=== PATIENT | female | born 1995 | race Two or more races ===

== ENCOUNTER 2016-10-08 18:50 | Outpatient (CLI) | payer MEDICAID ==
[2016-10-08 19:29] LABS: APPEARANCE,URINE SLIGHTLY-CLOUDY; BILIRUBIN,URINE NEGATIVE (NEGATIVE); GLUCOSE, URINE NEGATIVE (NEGATIVE); KETONES,URINE NEGATIVE (NEGATIVE); LEUKOCYTE ESTERASE,URINE LARGE (NEGATIVE); NITRITE,URINE NEGATIVE (NEGATIVE); PROTEIN,URINE 30 mg/dL (NEGATIVE); URINE SPECIFIC GRAVITY 1.028
[2016-10-08 19:32] LABS: AMNISURE (ROM) NEGATIVE (NEGATIVE)
[2016-10-08 19:50] LABS: URINE BARBITURATES SCREEN NEGATIVE; URINE METHADONE SCREEN NEGATIVE; URINE OPIATES LOW NEGATIVE; URINE PHENCYCLIDINE SCREEN NEGATIVE
--- NOTE | 2016-10-08 20:00 | L&D Flow Sheet ---
LD Flowsheet Datetime Report Generated by CPN: 10/08/2016 20:00 Datetime: 10/08/2016 19:37 NBP Sys/Tia/Mean (mmHg): 132 (QS system process) : 63 (QS system process) : 90 (QS system process) Pulse: 83 (QS system process) Respirations: 15 (Adelaida Vitrano, RN) Communication LaborFlag: Labor (QS system process) Datetime: 10/08/2016 19:36 Monitor Interventions for FHR: Ultrasound Adjusted (Adelaida Vitrano, RN) Patient Care Comments: Reviewed negative Amnisure; pt returned to bed for monitoring (Adelaida Vitrano, RN) Datetime: 10/08/2016 19:30 Uterine Activity Monitor Mode: External; Palpation (Adelaida Vitrano, RN) Frequency (min): Occasional (Adelaida Vitrano, RN) Quality: Mild (Adelaida Vitrano, RN) Duration (sec): 50-90 (Adelaida Vitrano, RN) Resting Tone (Palpate): Relaxed (Adelaida Vitrano, RN) Assessment A Monitor Mode: External US (Adelaida Vitrano, RN) FHR Baseline Rate : 150 (Adelaida Vitrano, RN) Variability: Moderate 6-25 bpm (Adelaida Vitrano, RN) Accelerations: 15X15 (Adelaida Vitrano, RN) Decelerations: None (Adelaida Vitrano, RN) Datetime: 10/08/2016 19:29 Monitor Interventions for FHR: Ultrasound Adjusted (Adelaida Vitrano, RN) Comments: Tracing maternal HR d/t pt position and movement; RN at bedside (Adelaida Vitrano, RN) Datetime: 10/08/2016 19:25 Monitor Interventions for FHR: Ultrasound Adjusted (Adelaida Vitrano, RN) Datetime: 10/08/2016 19:24 Patient Care Comments: Pt up to birthing ball (Adelaida Vitrano, RN) Datetime: 10/08/2016 19:09 Vaginal Exam Dilatation (cm): 2.5 (Adelaida Vitrano, RN) Effacement (%): 50 (Adelaida Vitrano, RN) Station: -2 (Adelaida Vitrano, RN) Exam by: Sharda Nelson RN (Adelaida Vitrano, RN) Vaginal Bleeding: None (Adelaida Vitrano, RN) Cervix, Consistency: Moderate (Adelaida Vitrano, RN) Cervix, Position: Posterior (Adelaida Vitrano, RN) Datetime: 10/08/2016 19:06 NBP Sys/Tia/Mean (mmHg): 142 (QS system process) : 85 (QS system process) : 106 (QS system process) Pulse: 83 (QS system process) Respirations: 15 (Adelaida Vitrano, RN) Communication LaborFlag: Labor (QS system process) Datetime: 10/08/2016 19:04 Patient Care Patient Position/Activity: Right Tilt; Semi-Fowlers (Adelaidajairon Nelson RN) I/O Interventions: Clear Liquids Given (Adelaida Vitrano, RN) Teaching Instructional Method: Verbal; Patient Instructed; Family/Support Person Instructed; Verbalized Understanding (Adelaida Nelson RN) Plan of Care: Plan of Care Discussed (Adelaida Nelson RN) Unit Routine: [place] to Room; Call Gallegos; Bed; Unit Personnel; Monitoring; Safety/Fall Risk Prevention; Bathroom Privileges (Adelaida EVETTE Nelson) Datetime: 10/08/2016 19:00 Vital Signs Stage of : Labor (Adelaida Vitrano, RN) Frequency (min): Unsure (Adelaida Vitrano, RN) Pain Pain Scale: 2 (Adelaida Leslie, RN) Pain Presence: Intermittent (Adelaida Lydiaano, RN) Pain Type: Cramping (Adelaida Vitrano, RN) Pain Location: Abdomen; Back (Adelaida Lydiaano, RN) Pain Relief Measures: Comfort Measures (Adelaida Vitrano, RN) Pain Coping: Talking Through Contractions (Adelaida Lydiaano, RN) Vaginal Bleeding: None (Adelaida Lydiaano, RN) Maternal Assessment Level of Consciousness: Fully Conscious (Adelaida Vitrano, RN) DTR's/Clonus: DTRs 2+; No Clonus (Adelaida Vitrano, RN) Headache: Denies (Adelaida Vitrano, RN) Breath Sounds, Left: Clear and Equal (Adelaida Vitrano, RN) Breath Sounds, Right: Clear and Equal (Adelaida Vitrano, RN) Nausea/Vomiting: Hx of Nausea/Vomiting (Annotations: Increase in nausea today) (Adelaida Vitrano, RN) RUQ Epigastric Pain: Denies (Adelaida Vitrano, RN) Communication LaborFlag: Labor (QS system process)
--- NOTE | 2016-10-08 20:06 | Non Stress Test Report ---
Non Stress Test Datetime Report Generated by CPN: 10/08/2016 20:05 DEMOGRAPHIC Test Number: 1 EGA NST: 37.6 INDICATION Indication for Study: Ordered by Provider MONITORING Monitor Explained: Monitor Explained; Test Explained; Patient Verbalized Understanding Time on Monitor: 10/08/2016 19:31 Time off Monitor: 10/08/2016 19:52 NST Duration: 21 NST INTERVENTIONS NST Interventions: Reposition Patient Physician Notified NST: Dr. Spann BABY A: [id number] BABY A Movement : Present Contraction Frequency : Occasional FHR Baseline : 155 Accelerations : 15X15 Decelerations : None Variability : Moderate 6-25bpm NST Review: Meets Criteria for Reactive NST NST Review and Verified By : Marcia Awad, RN NST Results: Reactive NST REPORT Report Trigger: Send Report
== END 2016-10-08 19:58 | disposition home or self-care (01) ==
LOC: LC 18:50
PROVIDERS: ATTEND Obstetrics & Gynecology
PROC: 4A1HXCZ Monitoring of Products of Conception, Cardiac Rate, External Approach (ICD-10-PCS; principal; 2016-10-08)
DX: O47.1 False labor at or after 37 completed weeks of gestation (principal); Z3A.37 37 weeks gestation of pregnancy
CPT/HCPCS: 59025; 80307; 81005; 84112

== ENCOUNTER 2016-10-09 19:38 | Inpatient (IN) | payer MEDICAID ==
[2016-10-09] MEDS ORDERED: PENICILLIN G POTASSIUM 5,000,000 UNIT in DEXTROSE 5%-WATER 100 ML IV ONE (20:27)
[2016-10-09] MEDS ORDERED: RINGERS SOLUTION,LACTATED 1,000 ML IV PRN (20:27)
[2016-10-09] MEDS ORDERED: ONDANSETRON 4 MG TAB.RAPDIS PO ONE (20:28)
[2016-10-09 20:30] LABS: ABSOLUTE EOSINOPHILS # (AUTO) 0.1 10^3/uL (0.0-0.6); ABSOLUTE LYMPHOCYTES (AUTO) 2.4 10^3/uL (0.5-4.7); ABSOLUTE MONOCYTES (AUTO) 1.3 10^3/uL (0.1-1.4); BASOPHILS % (AUTO) 0.1 % (0-2); EOSINOPHILS % (AUTO) 0.4 % (0-6); HEMATOCRIT 34.2 % (36.0-47.0); HEMOGLOBIN 11.2 g/dL (12.0-15.5); HGB HCT DIFFERENCE -0.6; LYMPHOCYTES % (AUTO) 20.4 % (13-45); MEAN CORPUSCULAR HEMOGLOBIN 25.9 pg (27.0-33.4); MEAN CORPUSCULAR HGB CONC 32.6 g/dL (32.0-36.0); MEAN CORPUSCULAR VOLUME 80 fl (80-97); MONOCYTES % (AUTO) 10.9 % (3-13); RED CELL DISTRIBUTION WIDTH 13.9 % (11.5-14.0); SEGMENTED NEUTROPHILS % (AUTO) 68.2 % (42-78); WHITE BLOOD COUNT 11.8 10^3/uL (4.0-10.5)
[2016-10-09] MEDS ORDERED: ONDANSETRON 4 MG TAB.RAPDIS ONE (20:30)
[2016-10-09] MEDS ORDERED: PENICILLIN G-K 5 MILLION UNIT VIAL ONE (20:31)
[2016-10-09 20:58] LABS: APPEARANCE,URINE CLEAR; BILIRUBIN,URINE NEGATIVE (NEGATIVE); GLUCOSE, URINE NEGATIVE (NEGATIVE); KETONES,URINE NEGATIVE (NEGATIVE); LEUKOCYTE ESTERASE,URINE TRACE (NEGATIVE); NITRITE,URINE NEGATIVE (NEGATIVE); PROTEIN,URINE NEGATIVE (NEGATIVE); URINE SPECIFIC GRAVITY 1.011; UROBILINOGEN,URINE NEGATIVE mg/dL (<2.0)
[2016-10-09 21:13] LABS: URINE BARBITURATES SCREEN NEGATIVE; URINE METHADONE SCREEN NEGATIVE; URINE OPIATES LOW NEGATIVE; URINE PHENCYCLIDINE SCREEN NEGATIVE
[2016-10-09] MEDS ORDERED: ONDANSETRON HCL INJ/PF 4 MG/2 ML SDV IV ONE (21:27)
[2016-10-09] MEDS ORDERED: ONDANSETRON HCL INJ/PF 4 MG/2 ML SDV ONE (21:29)
--- NOTE | 2016-10-09 22:00 | L&D Flow Sheet ---
LD Flowsheet Datetime Report Generated by CPN: 10/09/2016 22:00 Datetime: 10/09/2016 21:50 Dilatation (cm): 5.0 (Antoinette Miri, RN) Effacement (%): 100 (Antoinette Miri, RN) Station: 0 (Antoinette Miri, RN) Exam by: R Miri, RNC (Antoinette Miri, RN) Datetime: 10/09/2016 21:31 Antiemetics/Antacids: Zofran IV (mg) @ (Annotations: 4 mg) (Antoinette Miri, RN) Datetime: 10/09/2016 21:30 Patient Care Comments: Pt vomiting in BR. States has the shakes. (Antoinette Miri, RN) Datetime: 10/09/2016 21:23 Communication Comments: Pt continues to feel nauseated. Dr. Bahena notified. Order for 4mg Zofran IV. (Antoinette Miri, RN) Datetime: 10/09/2016 21:20 I/O Interventions: Up to BR (Antoinette Miri, RN) Datetime: 10/09/2016 21:01 NBP Sys/Tia/Mean (mmHg): 143 (QS system process) : 82 (QS system process) : 107 (QS system process) Pulse: 78 (QS system process) LaborFlag: Antepartum (QS system process) Datetime: 10/09/2016 21:00 Monitor Mode: External (Antoinette hCery, RN) Frequency (min): 5-6 (Antoinette Chery, RN) Quality: Moderate (Antoinette Miri, RN) Duration (sec): 50-60 (Antoinette Miri, RN) Pattern: Normal: <= 5 Contractions in 10 Minutes (Antoinette Chery, RN) Resting Tone (Palpate): Relaxed (Antoinette Chery, RN) Monitor Mode: External US (Antoinette Chery, RN) FHR Baseline Rate : 145 (Antoinette Miri, RN) FHR Baseline Changes: No Baseline Change (Antoinette Chery, RN) Variability: Moderate 6-25 bpm (Antoinette Miri, RN) Accelerations: 15X15 (Antoinette Miri, RN) Decelerations: None (Antoinette Miri, RN) Datetime: 10/09/2016 20:51 Antibiotics: Penicillin IV (Units) @ (Annotations: 5,000,000 units) (Antoinette Miri, RN) Datetime: 10/09/2016 20:48 Antiemetics/Antacids: Zofran PO (mg) @ (Annotations: 4 mg ODT) (Antoinette Miri, RN) Datetime: 10/09/2016 20:38 I/O Interventions: Up to BR (Antoinette Chery, RN) Datetime: 10/09/2016 20:36 NBP Sys/Tia/Mean (mmHg): 130 (QS system process) : 81 (QS system process) : 100 (QS system process) Pulse: 71 (QS system process) LaborFlag: Antepartum (QS system process) Datetime: 10/09/2016 20:30 Monitor Mode: External (Antoinette Chery, RN) Frequency (min): 5 (Antoinette Chery, RN) Quality: Moderate (Antoinette Chery, RN) Duration (sec): 50-70 (Antoinette Miri, RN) Pattern: Normal: <= 5 Contractions in 10 Minutes (Antoinette Chery, RN) Resting Tone (Palpate): Relaxed (Antoinette Chery, RN) Monitor Mode: External US (Antoinette Chery, RN) FHR Baseline Rate : 145 (Antoinette Miri, RN) FHR Baseline Changes: No Baseline Change (Antoinette Chery, RN) Variability: Moderate 6-25 bpm (Antoinette Chery, RN) Accelerations: 15X15 (Antoinette Miri, RN) Decelerations: None (Antoinette Miri, RN) Datetime: 10/09/2016 20:24 IV/Blood Work: IV Infusing per Order; New IV Bag Hung (Ney Head, RN) Patient Care Comments: 18G IV started in LFA x1 attempt. Pt tolerated well. (Gail Sonido, RN) Datetime: 10/09/2016 20:21 Communication Comments: Dr. Bahena notified of pt's presence and c/o ROM ,u/c pattern and cervical exam. Orders received. (Antoinette Miri, RN) Datetime: 10/09/2016 20:13 Patient Care Comments: Pt sitting up due to feeling very nauseous. (Antoinette Chery RN) Instructional Method: Verbal (Antoinette Chery RN) Plan of Care: Plan of Care Discussed (Antoinette Chery RN) Unit Routine: [place] to Room; Call Gallegos; Bed (Antoinette Chery RN) Medications: Antibiotics (Antoinette Chery RN) Datetime: 10/09/2016 20:11 Pain Scale: 3 (Antoinette Chery RN) Pain Presence: Intermittent (Antoinette Chery RN) Pain Type: Cramping (Antoinette Chery RN) Pain Location: Abdomen (Antoinette Chery RN) Pain Goal: 1 (Antoinetet Chery RN) Pain Coping: Breathing Through Contractions (Antoinette Chery RN) Membrane Status: Ruptured (Antoinette Chery RN) Membranes Ruptured Date/Time: 10/09/2016 19:00 (Antoinette Chery RN) Membranes Rupture Method: Spontaneous (Antoinette Chery RN) Amniotic Fluid Color: Clear (Antoinette Chery RN) Amniotic Fluid Amount: None (Antoinette Chery RN) Amniotic Fluid Odor: Normal (Antoinette Chery RN) Vaginal Bleeding: None (Antoinette Chery RN) Pool: moderate amount of fluid seen leaking from vagina with valsalva (Antoinette Chery RN) Dilatation (cm): 3-4 cms (Antoinette Chery RN) Effacement: >80_ effaced (Antoinette Chery RN) Station: minus 1 to 0 (Antoinette Miri, RN) Consistency: Soft (Antoinette Miri, RN) Position: Midposition (Antoinette Miri, RN) Total Oquendo's Score: 10 (QS system process) : 9-14 = Usually no failure for induction (QS system process) Level of Consciousness: Fully Conscious (Antoinette Miri, RN) DTR's/Clonus: DTRs 1+ (Antoinette Miri, RN) Headache: Denies (Antoinette Miri, RN) Breath Sounds, Left: Clear and Equal (Antoinette Miri, RN) Breath Sounds, Right: Clear and Equal (Antoinette Miri, RN) Nausea/Vomiting: Present (Annotations: just nausea) (Antoinette Miri, RN) RUQ Epigastric Pain: Denies (Antoinette Miri, RN) LaborFlag: Antepartum (QS system process) Datetime: 10/09/2016 20:06 NBP Sys/Tia/Mean (mmHg): 139 (QS system process) : 66 (QS system process) : 95 (QS system process) Pulse: 69 (QS system process) LaborFlag: Antepartum (QS system process) Datetime: 10/09/2016 20:04 Stage of : Antepartum (Antoinette Chery RN) Dilatation (cm): 4.0 (Antoinette Chery RN) Effacement (%): 80 (Antoinette Chery RN) Station: -1 (Antoinette Chery RN) Exam by: RAHEEM Saenz (Antoinette Chery RN) Vaginal Bleeding: None (Antoinette Chery RN) Cervix, Consistency: Soft (Antoinette Chery RN) Cervix, Position: Midposition (Antoinette Chery RN)
[2016-10-09] MEDS ORDERED: PROMETHAZINE HCL INJ 25 MG/1 ML VIAL IV ONE (22:15)
[2016-10-09] MEDS ORDERED: NALBUPHINE HCL INJ 10 MG/1 ML AMPULE INJ ONE (22:15)
[2016-10-09] MEDS ORDERED: NALBUPHINE HCL INJ 10 MG/1 ML AMPULE ONE (22:18)
[2016-10-09] MEDS ORDERED: PROMETHAZINE HCL INJ 25 MG/1 ML VIAL ONE (22:18)
[2016-10-10] MEDS ORDERED: LIDOCAINE 1% INJ-PF (10 MG/ML) 30 ML SDV ONE (00:20)
[2016-10-10] MEDS ORDERED: OXYTOCIN/NORMAL SALINE 20 UNIT/1,000 ML RTUINJ ONE (00:20)
[2016-10-10] MEDS ORDERED: MISOPROSTOL 0.2 MG TABLET ONE (00:20)
[2016-10-10] MEDS ORDERED: PENICILLIN G-K 5 MILLION UNIT VIAL ONE (00:21)
[2016-10-10] MEDS ORDERED: PENICILLIN G POTASSIUM 2,500,000 UNIT in DEXTROSE 5%-WATER 50 ML IV SCH (00:28)
[2016-10-10] MEDS ORDERED: IBUPROFEN 800 MG TABLET ONE (03:19)
--- NOTE | 2016-10-10 03:55 | Delivery Summary ---
Del Sum A-C Datetime Report Generated by CPN: 10/10/2016 03:55 ADMISSION DATA Chief Complaint: Uterine Contractions; Suspected Ruptured Membranes Indication for Induction: Not Applicable Admission Impression: Term, Intrauterine ; Active Labor; Ruptured Membranes Admit Provider Comments: Term SROM/ labor. gbs + for pcn. anticipate DELIVERY PERSONNEL Delivery Doctor:: Bhavna Bahena MD Labor and Delivery Nurse:: Antoinette Chery RNsenior media planner Nurse:: Ney Head RN Nursery Nurse:: Michela Nunez RN Hand Ii Thermal Cutter/PELT DROPPER: Camryn Kumar, ST MATERNAL INFORMATION Delivery Anesthesia: Local Medications After Delivery: Pitocin Bolus-Please Comment; Pitocin Drip 20 Units/1000ml NSS Meds After Delivery Comment: 20 units pitocin bolus after placenta delivery Estimated Blood Loss (ml): 350 Maternal Complications: None Provider Comments: over intact perineum w repair of lac as above. compound hand noted. no shoulder difficulty. live male infant ap 05/09. spontaneous intact placenta 3vc. no complications LABOR SUMMARY EDC: 10/23/2016 00:00 No. Babies in Womb: 1 Attempted: No Labor Anesthesia: None LABOR INFORMATION Reason for Induction: Not Applicable Onset of Labor: 10/09/2016 19:00 Complete Dilatation: 10/10/2016 01:31 Oxytocin: N/A Group B Beta Strep: Positive Antibiotics # of Doses: 2 Antibiotics Time of Last Dose: 0030 Name of Antibiotic Given: Penicillin Steroids Given: None Reason Steroids Not Administered: Not Applicable MEMBRANES Membranes Rupture Method: Spontaneous Rupture of Membranes: 10/09/2016 19:00 Length of Rupture (hr): 6.73 Amniotic Fluid Color: Clear Amniotic Fluid Amount: None Amniotic Fluid Odor: Normal STAGES OF LABOR Stage 1 hr: 6 Stage 1 min: 31 Stage 2 hr: 0 Stage 2 min: 13 Stage 3 hr: 0 Stage 3 min: 3 Total Time in Labor hr: 6 Total Time in Labor min: 47 VAGINAL DELIVERY Episiotomy: None Laceration Extension: First Degree Laceration Type: Vaginal Laceration Repair: Yes Laceration Repair Note: 1% lidocaine local used. 1st deg lac left vagina repaired in running fashion with 3-0 vicryl Sponge Count Correct: Yes Sharps Count Correct: Yes CSECTION DELIVERY Primary Indication: N/A Secondary Indication: N/A CSection Urgency: N/A CSection Incidence: N/A Labor: N/A Elective: N/A CSection Incision: N/A BABY A INFORMATION Delivery Date/Time: 10/10/2016 01:44 Method of Delivery: Vaginal Born in Route : No : N/A Forceps: N/A Vacuum Extraction: N/A Shoulder Dystocia : No PRESENTATION/POSITION BABY A Presentation: Cephalic Cephalic Presentation: Vertex Vertex Position: Right Occipital Anterior Breech Presentation: N/A PLACENTA INFORMATION BABY A Placenta Delivery Time : 10/10/2016 01:47 Placenta Method of Delivery: Spontaneous Placenta Status: Delivered SCORES BABY A Heart Rate 1 min: >100 bpm Resp Effort 1 min: Good Cry Reflex Irritability 1 min: Cough or Sneeze or Pulls Away Muscle Tone 1 min: Active Motion Color 1 min: Body [place], Extremities Blue Resuscitation Effort 1 min: Tactile Stimulation SCORE 1 MIN: 9 Heart Rate 5 min: >100 bpm Resp Effort 5 min: Good Cry Reflex Irritability 5 min: Cough or Sneeze or Pulls Away Muscle Tone 5 min: Active Motion Color 5 min: Body [place], Extremities Blue Resuscitation Effort 5 min: N/A SCORE 5 MIN: 9 INFANT INFORMATION BABY A Gestational Age at Delivery: 38.1 Gestational Status: Early Term- 37- 38.6 Weeks Outcome : Liveborn Infant Condition : Stable Sex: Female IDENTIFICATION BABY A Verification Date/Time: 10/10/2016 01:52 ID Band Number: [id number] Mother's Name Verified: Yes RN Verifying Infant: Marcia Awad RN Additional Verifying Personnel: Sharda Head RN WEIGHT/LENGTH BABY A Infant Birthweight (gm): 2900 Weight (lb): 6 Weight (oz): 6 Infant Length (in): 19.25 Length (cm): 48.90 CORD INFORMATION BABY A No. Cord Vessels: 3 Nuchal Cord : N/A Cord Blood Taken: Yes-For Storage (Mom's Blood type +) Suction: Mouth ASSESSMENT BABY A Infant Complications: None Physical Findings at Delivery: Other Physical Findings- Other: see nursery notes Infant Respirations: Appears Normal Skin to Skin: Yes Skin to Skin Time (min): 90 Green Belt/ALS Called : No Infant Care By: Carlos Nunez RN Transferred To: Remains with Mother BABY B INFORMATION : N/A SIGNATURES Signature: with User ID: [email or web address]
[2016-10-10] MEDS ORDERED: ACETAMINOPHEN WITH CODEINE #3 TABLET PO PRN ×2 (04:02)
[2016-10-10] MEDS ORDERED: DIPH/PERTUSS(ACELL)/TETANUS VAC/PF 0.5 ML SYR (>=10YO) IM PRN (04:02)
[2016-10-10] MEDS ORDERED: BENZOCAINE/MENTHOL AEROSOL SPRAY 56 ML TOP PRN (04:02)
[2016-10-10] MEDS ORDERED: ZOLPIDEM TARTRATE 5 MG TABLET PO PRN (04:02)
[2016-10-10] MEDS ORDERED: DIBUCAINE 1% OINTMENT 28 GM TP PRN (04:02)
[2016-10-10] MEDS ORDERED: OXYTOCIN/NORMAL SALINE 1,000 ML IV PRN (04:02)
[2016-10-10] MEDS ORDERED: MEASLES,MUMPS&RUBELLA VACC/PF 0.5 ML VIAL SUBCUT PRN (04:02)
--- NOTE | 2016-10-10 04:13 | Admission Physical ---
Datetime Report Generated by CPN: 10/10/2016 04:12 CURRENT ADMISSION Hx Assessment: The History has been Reviewed and is Current Chief Complaint: Uterine Contractions; Suspected Ruptured Membranes Indication for Induction: Not Applicable Admit Plan: Admit to Unit; Initiate Labor Protocol ALLERGIES Medication Allergies: No Medication Allergies: No Known Allergies (10/09/2016) Latex: No Latex Allergies Food Allergies: N/A Environmental Allergies: N/A OBSTETRICAL HISTORY EDC: 10/23/2016 00:00 : 1 Para: 0 Term: 0 : 0 SAB: 0 IAB: 0 Ectopic: 0 Livin Cesareans: 0 VBACs: 0 Multiple Births: 0 Gestational Diabetes: No Rh Sensitization: No Incompetent Cervix: No ELIZA: No Infertility: No ART Treatment: No Uterine Anomaly: No IUGR: No Hx Previous C/S: No Macrosomia: No Hx Loss/Stillborn: No PIH: No Hx : No Placenta Previa/Abruption: No Depression/PP Depression: No PTL/PROM: No Post Hemorrhage: No SEE RECORDS Alcohol: No Marijuana : No Cocaine: No Other Illicit Drugs: No Cigarettes: Never Smoker. [id number] MEDICAL HISTORY Diabetes: No Blood Transfusion: No Pulmonary Disease (Asthma, TB): No Breast Disease: No Hypertension: No Assistive Technology Specialist Surgery: No Heart Disease: No Hosp/Surgery: No Autoimmune Disorder: No Anesthetic Complications: No Kidney Disease: No Abnormal Pap Smear: No Neuro/Epilepsy: No Psychiatric Disorders: No Other Medical Diseases: No Hepatitis/Liver Disease: No Significant Family History: No Varicosities/Phlebitis: No Trauma/Violence : No Thyroid Dysfunction: No INFECTIOUS HISTORY Gonorrhea: No Genital Herpes: No Chlamydia: No Tuberculosis: No Syphilis: No Hepatitis: No HIV/AIDS Exposure: No Rash or Viral Illness: No HPV: No PHYSICAL EXAM General: Normal HEENT: Deferred Neurologic: Deferred Thyroid: Deferred Heart: Normal Lungs: Normal Breast: Deferred Back: Deferred Abdomen: Normal Genitourinary Exam: Normal Extremities: Normal DTRs: Normal Pelvic Type: Adequate Vital Signs: Reviewed; Within Normal Limits MEMBRANES Membranes: Ruptured FETUS A EGA: 38.1 FHR- Baseline: 130 Variability: Moderate 6-25bpm Accelerations: 15X15 Decelerations: Variable FHR Category: Category II Admit Comment: Term SROM/ labor. gbs + for pcn. anticipate PLANS FOR LABOR AND DELIVERY Labor and Delivery: None Pain Management: Natural Feeding Preference: Breast Benefit of Breast Feed Discussed: Yes Circumcision: N/A INFORMED CONSENT Signature: with User ID: [email or web address]
[2016-10-10] MEDS: IBUPROFEN 800 MG TABLET PO SCH ×3 (05:09→21:14)
--- NOTE | 2016-10-10 07:00 | L&D Flow Sheet ---
LD Flowsheet Datetime Report Generated by CPN: 10/10/2016 07:00 Datetime: 10/10/2016 03:24 Pain Scale: 3 (Antoinette Miri, RN) Pain Presence: Intermittent (Antoinette Miri, RN) Pain Type: Cramping (Antoinette Miri, RN) Pain Location: Abdomen (Antoinette Miri, RN) Datetime: 10/10/2016 02:48 NBP Sys/Tia/Mean (mmHg): 119 (QS system process) : 58 (QS system process) : 83 (QS system process) Pulse: 80 (QS system process) Respirations: 18 (Antointete Miri, RN) Datetime: 10/10/2016 02:37 Stage of : Recovery (Gail EVETTE Head) NBP Sys/Tia/Mean (mmHg): 120 (QS system process) : 62 (QS system process) : 85 (QS system process) Pulse: 82 (QS system process) Datetime: 10/10/2016 02:17 Stage of : Recovery (Ritabridger EVETTE Head) NBP Sys/Tia/Mean (mmHg): 132 (QS system process) : 68 (QS system process) : 94 (QS system process) Pulse: 81 (QS system process) Datetime: 10/10/2016 02:02 Stage of : Recovery (Antoinette Chery RN) NBP Sys/Tia/Mean (mmHg): 137 (QS system process) : 82 (QS system process) : 103 (QS system process) Pulse: 88 (QS system process) Respirations: 18 (Antoinette Chery RN) Temperature (F): 98.8 (Antoinette Chery RN) Temperature (C): 37.1 (QS system process) Temperature Route: Oral (Antoinette Chery RN) Pain Scale: 2 (Antoinette Chery RN) Pain Presence: Constant (Antoinette Chery RN) Pain Type: Dull (Antoinette Chery RN) Pain Location: Perineum (Antoinette Chery RN) Datetime: 10/10/2016 01:44 Stage 2 Comments: of viable baby girl, see delivery summary (Agbridger Sonido ) Datetime: 10/10/2016 01:43 Communication: Provider at Bedside (Ximena Awad, RN) Communication Comments: Dr Bahena at bedside for delivery (Ximena Awad, RN) Datetime: 10/10/2016 01:40 Monitor Mode: External (Antoinette Chery, RN) Frequency (min): 2 (Antoinette Chery, RN) Quality: Moderate to Strong (Antoinette Chery, RN) Duration (sec): 50-70 (Antoinette Chery, RN) Resting Tone (Palpate): Relaxed (Antoinette Chery, RN) Contraction Comments: Pushing (Antoinette Chery, RN) Datetime: 10/10/2016 01:31 Dilatation (cm): 10.0 (Antoinette Chery, RN) Exam by: Dr. Bahena (Antoinette Chery, RN) Vaginal Exam Comments: lip reduced per Dr. Bahena (Antoinette Chery, RN) Datetime: 10/10/2016 01:30 Monitor Mode: External (Antoinette Miri, RN) Frequency (min): 2 (Antoinette Miri, RN) Quality: Moderate to Strong (Antoinette Miri, RN) Duration (sec): 50-70 (Antoinette Miri, RN) Resting Tone (Palpate): Relaxed (Antoinette Miri, RN) Monitor Mode: External US (Antoinette Miri, RN) FHR Baseline Rate : 135 (Antoinette Miir, RN) FHR Baseline Changes: No Baseline Change (Antoinette Miri, RN) Variability: Moderate 6-25 bpm (Antoinette Miri, RN) Accelerations: None (Antoinette Miri, RN) Decelerations: Early (Antoinette Miri, RN) Datetime: 10/10/2016 01:28 Communication: Provider at Bedside (Antoinette Miri, RN) Communication Comments: Dr. Bahena (Antoinette Miri, RN) Datetime: 10/10/2016 01:25 Patient Care Comments: Pt to right side. (Antoinette Chery, RN) Datetime: 10/10/2016 01:22 Patient Care Comments: Back to back. Trying to reduce right anterior lip. (Antoinette Chery, EVETTE) Datetime: 10/10/2016 01:07 Accelerations: None (Antoinette Chery RN) Pain Assessment Comments: pt c/o back pain. (Antoinette Chery RN) Patient Care Comments: to hands and knees (Antoinette Chery RN) LaborFlag: Antepartum (QS system process) Datetime: 10/10/2016 01:00 Monitor Mode: External (Antoinette Miri, RN) Frequency (min): 1-4 (Antoinette Miri, RN) Quality: Moderate to Strong (Antoinette Miri, RN) Duration (sec): 70-100 (Antoinette Miri, RN) Resting Tone (Palpate): Relaxed (Antoinette Miri, RN) Monitor Mode: External US (Antoinette Miri, RN) FHR Baseline Rate : 140 (Antoinette Miri, RN) FHR Baseline Changes: No Baseline Change (Antoinette Miri, RN) Variability: Moderate 6-25 bpm (Antoinette Miri, RN) Accelerations: None (Antoinette Miri, RN) Decelerations: Early (Antoinette Miri, RN) Datetime: 10/10/2016 00:59 Dilatation (cm): 9.5 (Antoinette Miri, RN) Exam by: R Miri RNC (Antoinette Miri, RN) Datetime: 10/10/2016 00:54 Patient Care Comments: Pt on knees in pain. States the pressure is worse. (Antoinette Miri, RN) Communication: RN at Bedside (Antoinette Miri, RN) Datetime: 10/10/2016 00:33 Communication Comments: Dr. Bahena notified of pt's progress. States to check pt in an hour and call her back. (Antoinette Miri, RN) Datetime: 10/10/2016 00:32 Communication: RN at Bedside (Antoinette Miri, RN) Datetime: 10/10/2016 00:30 Monitor Mode: External (Antoinette Miri, RN) Frequency (min): 1-4 (Antoinette Miri, RN) Frequency (min): 2-4 (Antoinette Miri, RN) Quality: Moderate to Strong (Antoinette Miri, RN) Duration (sec): 40-70 (Antoinette Miri, RN) Resting Tone (Palpate): Relaxed (Antoinette Miri, RN) Monitor Mode: External US (Antoinette Miri, RN) FHR Baseline Rate : 140 (Antoinette Miri, RN) FHR Baseline Changes: No Baseline Change (Antoinette Miri, RN) Variability: Moderate 6-25 bpm (Antoinette Miri, RN) Accelerations: None (Antoinette Miri, RN) Decelerations: Early (Antoinette Miri, RN) Antibiotics: Penicillin IV (Units) @ 2,500,000 (Antoinette Chery, RN) Communication: RN at Bedside (Antoinette Chery, RN) Datetime: 10/10/2016 00:15 Monitor Mode: External (Antoinette Miri, RN) Frequency (min): 2-3 (Antoinette Miri, RN) Quality: Moderate to Strong (Antoinette Miri, RN) Duration (sec): 50-80 (Antoinette Miri, RN) Pattern: Normal: <= 5 Contractions in 10 Minutes (Antoinette Miri, RN) Monitor Mode: External US (Antoinette Miri, RN) FHR Baseline Rate : 135 (Antoinette Chery, RN) FHR Baseline Changes: No Baseline Change (Antoinette Chery, RN) Variability: Moderate 6-25 bpm (Antoinette Chery, RN) Accelerations: 15X15 (Antoinette Miri, RN) Decelerations: Early (Antoinette Miri, RN) Datetime: 10/10/2016 00:11 Dilatation (cm): 7.5 (Antoinette Chery RN) Station: 1 (Antoinette Chery RN) Exam by: RAHEEM Saenz (Antoinette Chery RN) Vaginal Bleeding: None (Antoinette Chery RN) Cervix, Consistency: Soft (Antoinette Chery RN) Cervix, Position: Anterior (Antoinette Chery RN) Patient Care Comments: Pt noted to be standing on side of the bed swaying. Family members present with her. C/O feeling pressure. (Antoinette Chery RN) Datetime: 10/10/2016 00:00 Monitor Mode: External (Antoinette Chery, RN) Frequency (min): 2-4 (Antoinette Chery RN) Quality: Moderate to Strong (Antoinette Chery, RN) Duration (sec): 50-70 (Antoinette Chery, RN) Pattern: Normal: <= 5 Contractions in 10 Minutes (Antoinette Chery RN) Resting Tone (Palpate): Relaxed (Antoinette Chery RN) Monitor Mode: External US (Antoinette Chery, RN) FHR Baseline Rate : 135 (Antoinette Chery RN) FHR Baseline Changes: No Baseline Change (Antoinette Chery RN) Variability: Moderate 6-25 bpm (Antoinette Chery, RN) Accelerations: None (Antoinette Chery, RN) Decelerations: Early (Antoinette Chery RN) Communication: RN at Bedside (Antoinette Chery RN) Datetime: 10/09/2016 23:58 I/O Interventions: Up to BR (Antoinette Chery RN) Datetime: 10/09/2016 23:54 Patient Care Comments: Pt sitting up on end of bed. Had been in R lateral. Pt put in semi-fowlers and monitors adjusted. (Antoinette Chery RN) Datetime: 10/09/2016 23:48 NBP Sys/Tia/Mean (mmHg): 118 (QS system process) : 76 (QS system process) : 93 (QS system process) Pulse: 67 (QS system process) LaborFlag: Antepartum (QS system process) Datetime: 10/09/2016 23:33 I/O Interventions: Up to BR (Antoinette Miri, RN) Datetime: 10/09/2016 23:30 Monitor Mode: External (Antoinette Miri, RN) Frequency (min): 5-6 (Antoinette Miri, RN) Quality: Moderate (Antoinette Miri, RN) Duration (sec): 70-100 (Antoinette Miri, RN) Pattern: Normal: <= 5 Contractions in 10 Minutes (Antoinette Miri, RN) Resting Tone (Palpate): Relaxed (Antoinette Miri, RN) Monitor Mode: External US (Antoinette Miri, RN) FHR Baseline Rate : 145 (Antoinette Miri, RN) FHR Baseline Changes: No Baseline Change (Antoinette Miri, RN) Variability: Moderate 6-25 bpm (Antoinette Miri, RN) Accelerations: None (Antoinette Miri, RN) Decelerations: Early (Antoinette Miri, RN) Datetime: 10/09/2016 23:18 NBP Sys/Tia/Mean (mmHg): 141 (QS system process) : 89 (QS system process) : 111 (QS system process) Pulse: 70 (QS system process) Temperature (F): 98.4 (Antoinette Chery, RN) Temperature (C): 36.9 (QS system process) Temperature Route: Oral (Antoinette Chery, RN) Vital Sign Comments: cuff is on side pt lying on and taken during u/c. (Antoinette Chery RN) LaborFlag: Antepartum (QS system process) Datetime: 10/09/2016 23:13 Monitor Interventions for FHR: Ultrasound Adjusted (Antoinette Chery RN) Comments: U/S had slid down on stomach. (Antoinette Chery RN) Dilatation (cm): 6.5 (Antoinette Chery RN) Effacement (%): 100 (Antoinette Chery RN) Station: 0 (Antoinette Chery RN) Exam by: RAHEEM Saenz (Antoinette Chery, EVETTE) Vaginal Bleeding: None (Antoinette Chery RN) Cervix, Consistency: Soft (Antoinette Chery RN) Cervix, Position: Anterior (Antoinette Chery RN) Patient Care Comments: RN at bedside. (Antoinette Chery RN) Datetime: 10/09/2016 23:00 Monitor Mode: External (Antoinette Chery RN) Frequency (min): 2-5 (Antoinette Chery RN) Quality: Moderate (Antoinette Chery RN) Duration (sec): 40-100 (Antoinette Chery RN) Pattern: Normal: <= 5 Contractions in 10 Minutes (Antoinette Chery RN) Resting Tone (Palpate): Relaxed (Antoinette Chery RN) Monitor Mode: External US (Antoinette Chery RN) FHR Baseline Rate : 145 (Antoinette Chery RN) FHR Baseline Changes: No Baseline Change (Antoinette Chery RN) Variability: Moderate 6-25 bpm (Antoinette Miri, RN) Accelerations: None (Antoinette Miri, RN) Decelerations: Early (Antoinette Miri, RN) Datetime: 10/09/2016 22:43 NBP Sys/Tia/Mean (mmHg): 131 (QS system process) : 70 (QS system process) : 94 (QS system process) Pulse: 60 (QS system process) LaborFlag: Antepartum (QS system process) Datetime: 10/09/2016 22:30 Monitor Mode: External (Antoinette Miri, RN) Frequency (min): 5-6 (Antoinette Miri, RN) Quality: Moderate (Antoinette Miri, RN) Duration (sec): 90-120 (Antoinette Miri, RN) Pattern: Normal: <= 5 Contractions in 10 Minutes (Antoinette Miri, RN) Resting Tone (Palpate): Relaxed (Antoinette Miri, RN) Monitor Mode: External US (Antoinette Miri, RN) FHR Baseline Rate : 150 (Antoinette Miri, RN) FHR Baseline Changes: No Baseline Change (Antoinette Miri, RN) Variability: Moderate 6-25 bpm (Antoinette Miri, RN) Accelerations: None (Antoinette Miri, RN) Decelerations: Early (Antoinette Miri, RN) Datetime: 10/09/2016 22:23 Analgesics/Sedatives: Nubain (mg) @ 10 (Antoinette Chery, RN) Antiemetics/Antacids: Phenergan IV (mg) @ 12.5 (Antoinette Miri, RN) Datetime: 10/09/2016 22:13 NBP Sys/Tia/Mean (mmHg): 129 (QS system process) : 74 (QS system process) : 96 (QS system process) Pulse: 70 (QS system process) Respirations: 18 (Antoinette Miri, RN) Temperature (F): 98.3 (Antoinette Miri, RN) Temperature (C): 36.8 (QS system process) LaborFlag: Antepartum (QS system process) Datetime: 10/09/2016 21:52 Patient Care Comments: Pt states that she feels better since vomiting. Up to ambulate (Antoinette Miri, RN) Datetime: 10/09/2016 21:50 Dilatation (cm): 5.0 (Antoinette Miri, RN) Effacement (%): 100 (Antoinette Miri, RN) Station: 0 (Antoinette Miri, RN) Exam by: R Miri, RNC (Antoinette Miri, RN) Datetime: 10/09/2016 21:31 Antiemetics/Antacids: Zofran IV (mg) @ (Annotations: 4 mg) (Antoinette Miri, RN) Datetime: 10/09/2016 21:30 Monitor Mode: External (Antoinette Chery, RN) Frequency (min): 5-6 (Antoinette Chery, RN) Quality: Moderate (Antoinette Miri, RN) Duration (sec): 60-75 (Antoinette Chery, RN) Pattern: Normal: <= 5 Contractions in 10 Minutes (Antoinette Chery, RN) Resting Tone (Palpate): Relaxed (Antoinette Chery, RN) Monitor Mode: External US (Antoinette Chery, RN) FHR Baseline Rate : 150 (Antoinette Chery, RN) FHR Baseline Changes: No Baseline Change (Antoinette Chery, RN) Variability: Moderate 6-25 bpm (Antoinette Miri, RN) Accelerations: 15X15 (Antoinette Miri, RN) Decelerations: None (Antoinette Chery, RN) Patient Care Comments: Pt vomiting in BR. States has the shakes. (Antoinette Chery, RN) Datetime: 10/09/2016 21:23 Communication Comments: Pt continues to feel nauseated. Dr. Bahena notified. Order for 4mg Zofran IV. (Antoinette Miri, RN) Datetime: 10/09/2016 21:20 I/O Interventions: Up to BR (Antoinette Miri, RN) Datetime: 10/09/2016 21:01 NBP Sys/Tia/Mean (mmHg): 143 (QS system process) : 82 (QS system process) : 107 (QS system process) Pulse: 78 (QS system process) LaborFlag: Antepartum (QS system process) Datetime: 10/09/2016 21:00 Monitor Mode: External (Antoinette Miri, RN) Frequency (min): 5-6 (Antoinette Miri, RN) Quality: Moderate (Antoinette Miri, RN) Duration (sec): 50-60 (Antoinette Miri, RN) Pattern: Normal: <= 5 Contractions in 10 Minutes (Antoinette Miri, RN) Resting Tone (Palpate): Relaxed (Antoinette Miri, RN) Monitor Mode: External US (Antoinette Miri, RN) FHR Baseline Rate : 145 (Antoinette Miri, RN) FHR Baseline Changes: No Baseline Change (Antoinette Miri, RN) Variability: Moderate 6-25 bpm (Antoinette Miri, RN) Accelerations: 15X15 (Antoinette Miri, RN) Decelerations: None (Antoinette Miri, RN) Datetime: 10/09/2016 20:51 Antibiotics: Penicillin IV (Units) @ (Annotations: 5,000,000 units) (Antoinette Miri, RN) Datetime: 10/09/2016 20:48 Antiemetics/Antacids: Zofran PO (mg) @ (Annotations: 4 mg ODT) (Antoinette Miri, RN) Datetime: 10/09/2016 20:38 I/O Interventions: Up to BR (Antoinette Miri, RN) Datetime: 10/09/2016 20:36 NBP Sys/Tia/Mean (mmHg): 130 (QS system process) : 81 (QS system process) : 100 (QS system process) Pulse: 71 (QS system process) LaborFlag: Antepartum (QS system process) Datetime: 10/09/2016 20:30 Monitor Mode: External (Antoinette Miri, RN) Frequency (min): 5 (Antoinette Miri, RN) Quality: Moderate (Antoinette Miri, RN) Duration (sec): 50-70 (Antoinette Miri, RN) Pattern: Normal: <= 5 Contractions in 10 Minutes (Antoinette Miri, RN) Resting Tone (Palpate): Relaxed (Antoinette Miir, RN) Monitor Mode: External US (Antoinette Miri, RN) FHR Baseline Rate : 145 (Antoinette Miri, RN) FHR Baseline Changes: No Baseline Change (Antoinette Miri, RN) Variability: Moderate 6-25 bpm (Antoinette Miri, RN) Accelerations: 15X15 (Antoinette Miri, RN) Decelerations: None (Antoinette Miri, RN) Datetime: 10/09/2016 20:24 IV/Blood Work: IV Infusing per Order; New IV Bag Hung (Ney Head RN) Patient Care Comments: 18G IV started in LFA x1 attempt. Pt tolerated well. (Ney Head RN) Datetime: 10/09/2016 20:21 Communication Comments: Dr. Bahena notified of pt's presence and c/o ROM ,u/c pattern and cervical exam. Orders received. (Antoinette Chery RN) Datetime: 10/09/2016 20:13 Patient Care Comments: Pt sitting up due to feeling very nauseous. (Antoinette Chery RN) Instructional Method: Verbal (Antoinette Chery RN) Plan of Care: Plan of Care Discussed (Antoinette Chery RN) Unit Routine: [place] to Room; Call Gallegos; Bed (Antoinette Chery RN) Medications: Antibiotics (Antoinette Chery RN) Datetime: 10/09/2016 20:11 Pain Scale: 3 (Antoinette Chery RN) Pain Presence: Intermittent (Antoinette Chery RN) Pain Type: Cramping (Antoinette Chery RN) Pain Location: Abdomen (Antoinette Chery RN) Pain Goal: 1 (Antoinette Chery RN) Pain Coping: Breathing Through Contractions (Antoinette Chery RN) Membrane Status: Ruptured (Antoinette Chery RN) Membranes Ruptured Date/Time: 10/09/2016 19:00 (Antoinette Chery RN) Membranes Rupture Method: Spontaneous (Antoinette Chery RN) Amniotic Fluid Color: Clear (Antoinette Chery RN) Amniotic Fluid Amount: None (Antoinette Chery RN) Amniotic Fluid Odor: Normal (Antoinette Chery RN) Vaginal Bleeding: None (Antoinette Chery RN) Pool: moderate amount of fluid seen leaking from vagina with valsalva (Antoinette Chery RN) Dilatation (cm): 3-4 cms (Antoinette Chery RN) Effacement: >80_ effaced (Antoinette Chery RN) Station: minus 1 to 0 (Antoinette Cheyr RN) Consistency: Soft (Antoinette Chery RN) Position: Midposition (Antoinette Chery RN) Total Oquendo's Score: 10 (QS system process) : 9-14 = Usually no failure for induction (QS system process) Level of Consciousness: Fully Conscious (Antoinette Chery RN) DTR's/Clonus: DTRs 1+ (Antoinette Chery RN) Headache: Denies (Antoinette Chery RN) Breath Sounds, Left: Clear and Equal (Antoinette Chery RN) Breath Sounds, Right: Clear and Equal (Antoinette Chery RN) Nausea/Vomiting: Present (Annotations: just nausea) (Antoinette Chery RN) RUQ Epigastric Pain: Denies (Antoinette Chery RN) LaborFlag: Antepartum (QS system process) Datetime: 10/09/2016 20:06 NBP Sys/Tia/Mean (mmHg): 139 (QS system process) : 66 (QS system process) : 95 (QS system process) Pulse: 69 (QS system process) LaborFlag: Antepartum (QS system process) Datetime: 10/09/2016 20:04 Stage of : Antepartum (Antoinette Chery RN) Dilatation (cm): 4.0 (Antoinette Chery RN) Effacement (%): 80 (Antoinette Chery RN) Station: -1 (Antoinette Chery RN) Exam by: RAHEEM Saenz (Antoinette Chery RN) Vaginal Bleeding: None (Antoinette Chery RN) Cervix, Consistency: Soft (Antoinette Chery RN) Cervix, Position: Midposition (Antoinette Chery RN)
[2016-10-10] MEDS: PRENATAL VITAMIN W-O CA NO5/FE FUMARATE/FA CAPSULE PO SCH (09:41)
[2016-10-10] MEDS: FERROUS SULFATE 325 MG TABLET PO SCH ×2 (09:42→17:35)
[2016-10-10] MEDS: DOCUSATE SODIUM 100 MG CAPSULE PO SCH ×2 (09:42→17:35)
[2016-10-10] MEDS: SENNOSIDES/DOCUSATE 8.6-50 MG 1 EACH TABLET PO SCH (09:42)
--- NOTE | 2016-10-10 18:00 | L&D Current Admission ---
Current Admit Datetime Report Generated by CPN: 10/10/2016 18:00 ADMISSION INFORMATION Current Admit Date/Time: 10/09/2016 20:09 (10/08/2016 19:00:Antoinette Chery RN) Reason for Admission: Rupture of Membranes (10/08/2016 19:00:Antoinette Chery RN) Chief Complaint: Suspected Rupture of Membranes (10/09/2016 20:11:Antoinette Chery RN) Medications During : Ferrous Sulfate (Iron); Vitamin (10/08/2016 19:00:Antoinette Chery RN) EGA per Dates: 38.0 (10/08/2016 19:00:QS system process) Reason for Induction: Not Applicable (10/08/2016 19:00:Antoinette Chery RN) Records Available: Yes (10/08/2016 19:00:Antoinette Chery RN) General Admission Information: Confirmed (10/08/2016 19:00:Antoinette Chery RN) General Admission Reviewed By: Leidy MACIEL (10/08/2016 19:00:Antoinette Chery RN) BELONGINGS/ADVANCED DIRECTIVES Advance Direct for Healthcare: No, and Wants No Information (10/08/2016 19:00:Antoinette Chery RN) Durable Power of Manager Bridge: No (10/08/2016 19:00:Antoinette Chery RN) Living Will: No (10/08/2016 19:00:Antoinette Chery RN) Organ Donor: No (10/08/2016 19:00:Antoinette Chery RN) Pt Rights Information Given: Yes (10/08/2016 19:00:Antoinette Chery RN) Patient Rights Comments: Pt access (10/08/2016 19:00:Antoinette Chery RN) LEARNING ASSESSMENT Knowledge Level: Understands L_D Process; Understands Care Activities (10/08/2016 19:00:Antoinette Chery RN) Barriers to Learning: Visual Deficit (10/08/2016 19:00:Antoinette Chery RN) Learning Readiness: Motivated (10/08/2016 19:00:Antoinette Chery RN) Learns Best By: 1 to 1 Instruction (10/08/2016 19:00:Antoinette Chery RN) Learning Needs: Labor and Delivery Process; Pain Management; Symptoms to Report (10/08/2016 19:00:Antoinette Chery RN) DOMESTIC VIOLANCE SCREENING Dom Viol Threatened/Hurt: No (10/08/2016 19:00:Antoinette Chery RN) Hx of Abuse/Neglect past 2yrs: No (10/08/2016 19:00:Antoinette Chery RN) Feel Unsafe Going Home: No (10/08/2016 19:00:Antoinette Chery RN) Addt'l Observ Indicating Abuse: No (10/08/2016 19:00:Antoinette Chery RN) Reason Unable to Complete Screen: N/A, Screen Completed (10/08/2016 19:00:Antoinette Chery RN) Considered Personal Harm/Suicide: No (10/08/2016 19:00:Antoinette Chery RN) NUTRITIONAL/FUNCTIONAL SCREENING Problem with Appetite >5 Days: No (10/08/2016 19:00:Antoinette Chery RN) Chew/Swallow Difficulties: No (10/08/2016 19:00:Antoinette Chery RN) Inappropriate Wt Gain/Loss: No (10/08/2016 19:00:Antoinette Chery RN) Presence Skin Breakdown/Ulcer: No (10/08/2016 19:00:Antoinette Chery RN) Special Diet: No (10/08/2016 19:00:Antoinette Chery RN) Pt Requests Electrical Engineering Intern Visit: No (10/08/2016 19:00:Antoinette Chery RN) Hx of Any of the Following?: N/A (10/08/2016 19:00:Antoinette Chery RN) New Diagnosis of: N/A (10/08/2016 19:00:Antoinette Chery RN) Requires Assist w/Ambulation: No (10/08/2016 19:00:Antoinette Chery RN) Uses Assist Device to Ambulate: No (10/08/2016 19:00:Antoinette Chery RN) Pt Requires Help w/ADL's: No (10/08/2016 19:00:Antoinette Chery RN)
--- NOTE | 2016-10-10 18:00 | L&D General Admission ---
General Admit Datetime Report Generated by CPN: 10/10/2016 18:00 INFORMATION Patient Age: 21 (10/03/2016 09:05:QS system process) EDC: 10/23/2016 00:00 (10/08/2016 18:54:RAHEEM Torres) : 1 (10/08/2016 18:54:Adelaida Nelson RN) Para: 0 (10/08/2016 18:54:Adelaida Nelson RN) Term: 0 (10/08/2016 18:54:Adelaida Nelson RN) : 0 (10/08/2016 18:54:Adelaida Nelson RN) Spontaneous Abortions: 0 (10/08/2016 18:54:Adelaida Nelson RN) Induced Abortions: 0 (10/08/2016 18:54:Adelaida Nleson RN) Livin (10/08/2016 18:54:Adelaida Nelson RN) Cesareans: 0 (10/08/2016 18:54:Adelaida Nelson RN) VBACs: 0 (10/08/2016 18:54:Adelaida Nelson RN) Ectopic: 0 (10/08/2016 18:54:Adelaida Nelson RN) Multiple Births: 0 (10/08/2016 18:54:Adelaida Nelson RN) Baby, Number in Womb: 1 (10/08/2016 18:54:Adelaida Nelson RN) CARE Primary Promotions Executive: [facility] (10/08/2016 18:54:Adelaida Nelson RN) Month of 1st Visit: 03/2016 (10/08/2016 18:54:Adelaida Nelson RN) Adequate Care: Yes (10/08/2016 18:54:Adelaida Nelson RN) Prepregnancy Weight (lb): 177 (10/08/2016 18:54:Adelaida Nelson RN) Prepregnancy Weight (kg): 80.5 (10/08/2016 18:54:QS system process) Height (in): 64 (10/10/2016 11:08:QS system process) ALLERGIES Medication Allergy: No (10/08/2016 18:54:Adelaida Nelson RN) Medication Allergies: No Known Allergies (10/09/2016) (10/09/2016 19:54:QS system process) Latex Allergy: No Latex Allergies (10/08/2016 18:54:Adelaida Nelson RN) Food Allergies: N/A (10/08/2016 18:54:Adelaida Nelson RN) Environmental Allergies: N/A (10/08/2016 18:54:Adelaida Nelson RN) COMMUNICATION Primary Language: Indian (10/08/2016 18:54:Adelaida Nelson RN) Medical Tx Preferred Language: Indian (10/08/2016 18:54:Adelaida Nelson RN) Communication Barrier(s): None (10/08/2016 18:54:Adelaida Nelson RN) DEMOGRAPHICS Address: [address] [place] [address] (10/03/2016 09:05:QS system process) Zipcode: [address] (10/03/2016 09:05:QS system process) Home (10/03/2016 09:05:QS system process) Work (10/08/2016 18:50:QS system process) SSN: [id number] (10/08/2016 18:50:QS system process) Next of Kin Name: NATALIE HANCOCK (10/03/2016 09:05:QS system process) Next of Kin (10/03/2016 09:05:QS system process) Next of Kin Relationship: MO (10/03/2016 09:05:QS system process) Date of : 1995 (10/03/2016 09:05:QS system process) Marital Status: Single (10/03/2016 09:05:QS system process) Sex: Female (10/03/2016 09:05:QS system process) Race: Other (10/03/2016 09:05:QS system process) Ethnicity: Non- or (10/03/2016 09:05:QS system process) Jewish: None (10/03/2016 09:05:QS system process) DRUG AND ALCOHOL USE Alcohol: No (10/08/2016 18:54:Adelaida Nelson RN) Cigarettes: Never Smoker. [id number] (10/08/2016 18:54:Adelaida Nelson RN) Marijuana: No (10/08/2016 18:54:Adelaida Nelson RN) Cocaine: No (10/08/2016 18:54:Adelaida Nelson RN) Other Illicit Drugs: No (10/08/2016 18:54:Adelaida Nelson RN) VACCINE HISTORY Influenza Vaccine: No (10/08/2016 18:54:Adelaida Nelson RN) Pneumococcal Vaccine: No (10/08/2016 18:54:Adelaida Nelson RN) Tetanus Vaccine: Yes (10/08/2016 18:54:Adelaida Nelson RN) Tdap Vaccine: Yes (10/08/2016 18:54:Adelaida Nelson RN) Hepatitis B Vaccine: Yes (10/08/2016 18:54:Adelaida Nelson RN) Volunteer Manager: [facility] (10/08/2016 18:54:Adelaida Nelson RN) Feeding Preference: Breast (10/08/2016 18:54:Adelaida Nelson RN) Benefit of Breast Feed Discussed: Yes (10/08/2016 18:54:Adelaida Nelosn RN) Circumcision: N/A (10/08/2016 18:54:Adelaida Nelson RN) Classes Attended: No (10/08/2016 18:54:Adelaida Nelson RN) Tubal Ligation: No (10/08/2016 18:54:Adelaida Nelson RN) Tubal Authorization Signed: N/A (10/08/2016 18:54:Adelaida Nelson RN) Consent: N/A (10/08/2016 18:54:Adelaida Nelson RN) Consent Signed: N/A (10/08/2016 18:54:Adelaida Nelson RN) Pain Management Plans: Natural (10/08/2016 18:54:Adelaida Nelson RN) Plans for Labor and Delivery: None (10/08/2016 18:54:Adelaida Nelson RN) Support Person: Natalie (10/08/2016 18:54:Adelaida Nelson RN) Support Person Relationship: Mother (10/08/2016 18:54:Adelaida Nelson RN) Cultural/Spritual Practice: No (10/08/2016 18:54:Adelaida Nelson RN) Spir/Cult Dietary Needs: No (10/08/2016 18:54:Adelaida Nelson RN) LIVING SITUATION/DISCHARGE PLAN Living Arrangements: House (10/08/2016 18:54:Adelaida Nelson RN) Adequate Access to:: Electric; Heat; Refrigeration; Plumbing/Running water; Phone; Transportation (10/08/2016 18:54:Adelaida Nelson RN) WIC Program: Yes (10/08/2016 18:54:Adelaida Nelson RN) Discharge Steam Locomotive Firer/Fireman Person: Mother (10/08/2016 18:54:Adelaida Nelson RN) Person to Help after Discharge: Mother (10/08/2016 18:54:Adelaida Nelson RN) Currently Using Commun Resources: Yes (10/08/2016 18:54:Adelaida Nelson RN) Specify Current Resource Used: Medicaid (10/08/2016 18:54:Adelaida Nelson RN) Outside Agency/[employer] Farmer: No (10/08/2016 18:54:Adelaida Nelson RN) Car Seat for Discharge: Yes (10/08/2016 18:54:Adelaida Nelson RN) Adoption Requested: No (10/08/2016 18:54:Adelaida Nelson RN) Pt Contact w/infant Post : N/A (10/08/2016 18:54:Adelaida Nelson RN) LABS Blood Type: A Positive (10/08/2016 18:54:Adelaida Nelson RN) Antibody Screen: Negative (10/08/2016 18:54:Adelaida Nelson RN) Rho(G) this : Not Applicable (10/08/2016 18:54:Adelaida Nelson RN) Hemoglobin: 11.2 L (10/09/2016 20:20:QS system process) Hematocrit: 34.2 L (10/09/2016 20:20:QS system process) MCV: 80 (10/09/2016 20:20:QS system process) Group Beta Strep: Positive (10/08/2016 18:54:Adelaida Nelson RN) Gonorrhea: Negative (10/08/2016 18:54:Adelaida Nelson RN) Chlamydia: Negative (10/08/2016 18:54:Adelaida Nelson RN) RPR/VDRL: Nonreactive (10/08/2016 18:54:Adelaida Nelson RN) HIV Exposure Test: Negative (10/08/2016 18:54:Adelaida Nelson RN) Hepatitis B: Negative (10/08/2016 18:54:Adelaida Nelson RN) Rubella: Immune (10/08/2016 18:54:Adelaida Nelson RN) OB/PREVIOUS HISTORY History of Previous : No (10/08/2016 18:54:Adelaida Nelson RN) History of Gestational Diabetes: No (10/08/2016 18:54:Adelaida Nelson RN) History of PIH: No (10/08/2016 18:54:Adelaida Nelson RN) History of Incompetent Cervix: No (10/08/2016 18:54:Adelaida Nelson RN) History of Placenta Previa/Abrup: No (10/08/2016 18:54:Adelaida Nelson RN) History of Macrosomia: No (10/08/2016 18:54:Adelaida Nelson RN) History of IUGR: No (10/08/2016 18:54:Adelaida Nelson RN) History of Hemorrhage: No (10/08/2016 18:54:Adelaida Nelson RN) History of Loss/Stillborn: No (10/08/2016 18:54:Adelaida Nelson RN) History of : No (10/08/2016 18:54:Adelaida Nelson RN) History of D (Rh) Sensitization: No (10/08/2016 18:54:Adelaida Nelson RN) History Recurrent Loss/Stillborn: No (10/08/2016 18:54:Adelaida Nelson RN) History Depression/PP Depression: No (10/08/2016 18:54:Adelaida Nelson RN) History of Uterine Anomaly/ELIZA: No (10/08/2016 18:54:Adelaida Nelson RN) History of Infertility: No (10/08/2016 18:54:Adelaida Nelson RN) History of ART Treatment: No (10/08/2016 18:54:Adelaida Nelson RN) History of ELIZA: No (10/08/2016 18:54:Adelaida Nelson RN) MEDICAL HISTORY Med Hx Diabetes: No (10/08/2016 18:54:Adelaida Nelson RN) Med Hx Hypertension: No (10/08/2016 18:54:Adelaida Nelson RN) Med Hx Heart Disease: No (10/08/2016 18:54:Adelaida Nelson RN) Med Hx Autoimmune Disorder: No (10/08/2016 18:54:Adelaida Nelson RN) Med Hx Kidney Disease/UTI: No (10/08/2016 18:54:Adelaida Nelson RN) Med Hx Neurologic/Epilepsy: No (10/08/2016 18:54:Adelaida Nelson RN) Med Hx Psychiatric Disorders: No (10/08/2016 18:54:Adelaida Nelson RN) Med Hx Hepatitis/Liver Disease: No (10/08/2016 18:54:Adelaida Nelson RN) Med Hx Varicosities/Phlebitis: No (10/08/2016 18:54:Adelaida Nelson RN) Med Hx Thyroid Dysfunction: No (10/08/2016 18:54:Adelaida Nelson RN) Med Hx Trauma/Violence: No (10/08/2016 18:54:Adelaida Nelson RN) Med Hx Blood Transfusion: No (10/08/2016 18:54:Adelaida Nelson RN) Med Hx Pulmonary (Asthma,TB): No (10/08/2016 18:54:Adelaida Nelson RN) Med Hx Breast: No (10/08/2016 18:54:Adelaida Nelson RN) Med Hx PLATE STRAIGHTENER Surgery: No (10/08/2016 18:54:Adelaida Nelson RN) Med Hx Hospitalization/Surgery: No (10/08/2016 18:54:Adelaida Nelson RN) Med Hx Anesthetic Complications: No (10/08/2016 18:54:Adelaida Nelson RN) Med Hx Abnormal Pap Smear: No (10/08/2016 18:54:Adelaida Nelson RN) Other Medical Diseases: No (10/08/2016 18:54:Adelaida Nelson RN) Med Hx Significant Family Hx: No (10/08/2016 18:54:Adelaida Nelson RN) INFECTIOUS HISTORY Inf Hx Gonorrhea: No (10/08/2016 18:54:Adelaida Nelson RN) Inf Hx Chlamydia: No (10/08/2016 18:54:Adelaida Nelson RN) Inf Hx Syphilis: No (10/08/2016 18:54:Adelaida Nelson RN) Inf Hx HIV/AIDS: No (10/08/2016 18:54:Adelaida Nelson RN) Inf Hx Human Papilloma Virus: No (10/08/2016 18:54:Adelaida Nelson RN) Inf Hx Pt/Partner Genital Herpes: No (10/08/2016 18:54:Adelaida Nelson RN) Inf Hx Tuberculosis/Exposure: No (10/08/2016 18:54:Adelaida Nelson RN) Inf Hx Hepatitis B,C: No (10/08/2016 18:54:Adelaida Nelson RN) Inf Hx Rash or Viral Illness: No (10/08/2016 18:54:Adelaida Nelson RN) GENETIC HISTORY Gen Hx Age >=35 at YVETTE: No (10/08/2016 18:54:Adelaida Nelson RN) Gen Hx Thalassemia: No (10/08/2016 18:54:Adelaida Nelson RN) Gen Hx Congenital Heart Defect: No (10/08/2016 18:54:Adelaida Nelson RN) Gen Hx Neural Tube Defect: No (10/08/2016 18:54:Adelaida Nelson RN) Gen Hx Down's Syndrome: No (10/08/2016 18:54:Adelaida Nelson RN) Gen Hx Kevin-Sachs: No (10/08/2016 18:54:Adelaida Nelson RN) Gen Hx Valorie: No (10/08/2016 18:54:Adelaida Nelson RN) Gen Hx Familial Dysautonomia: No (10/08/2016 18:54:Adelaida Nelson RN) Gen Hx Sickle Cell Disease/Trait: No (10/08/2016 18:54:Adelaida Nelson RN) Gen Hx Hemophilia/Blood Disorder: No (10/08/2016 18:54:Adelaida Nelson RN) Gen Hx Muscular Dystrophy: No (10/08/2016 18:54:Adelaida Nelson RN) Gen Hx Cystic Fibrosis: No (10/08/2016 18:54:Adelaida Nelson RN) Gen Hx Huntingtons Chorea: No (10/08/2016 18:54:Adelaida Nelson RN) Gen Hx Mental Retardation/Autism: No (10/08/2016 18:54:Adelaida Nelson RN) Gen Hx Tested for Fragile X: No (10/08/2016 18:54:Adelaida Nelson RN) Gen Hx Other Inher/Chromosomal: No (10/08/2016 18:54:Adelaida Nelson RN) Gen Hx Maternal Metabolic DO: No (10/08/2016 18:54:Adelaida Nelson RN) Gen Hx Pt Father or FOB Defect: No (10/08/2016 18:54:Adelaida Nelson RN) Gen Hx Other Genetic History: No (10/08/2016 18:54:Adelaida Nelson RN) Gen Hx Drugs/Meds since LMP: No (10/08/2016 18:54:Adelaida Nelson RN)
--- NOTE | 2016-10-10 18:15 | L&D Care Plan ---
LD CARE PLANS Datetime Report Generated by CPN: 10/10/2016 18:15 Datetime: 10/09/2016 20:08 Pain State: Risk For (Ximena Awad, RN) Related To: Labor and Delivery Process (Ximena Encisoy, RN) Goal(s): Patients Pain will be Assessed and Managed; Patient will Verbalize Adequate Relief of Pain or the Ability to [place] with Current Pain (Ximena Awad, RN) Interventions: Assess Pain Severity on Scale of 0 (None) to 5 (Severe); Assess Type, Location and Intensity of Pain Each Time Client Reports Discomfort and Notify Provider if Unusal Pain Develops; Encourage Proper Breathing and Relaxation Techniques; Offer Alternatives Such as Repositioning, Calm Environment, Massages, Diversional Activities, Ice Pack, Splinting, and Ambulation; Administer Analgesics as Ordered; Assist with Epidural Placement as Appropriate; Evaluate Therapeutic Effectiveness of Medication and Treatments (Ximena Awad RN) Outcome: Patient will Report Absence or Relief of Pain Consistent with Established Pain Goal (Ximena Awad RN) Outcome: Patient will have a Decrease in Signs and Symptoms of Discomfort (Ximena Awad RN) Outcome: Pain will be Controlled During Procedures (Ximena Awad RN) Anxiety State: Risk For (Ximena Awad RN) Related To: Labor and Delivery Process; Fear of Unknown; Situational Crisis; Medical Interventions; Significant Life Event (Ximena Awad RN) Goal(s): Patient will have Decreased Anxiety and be able to Function at Acceptable Levels (Ximena Awad RN) Interventions: Assess Verbal and Nonverbal Behavioral Indicators of Anxiety; Assist Patient to Identify and Verbalize Symptoms of Anxiety; Identify and Demonstrate Techniques to Control Anxiety; Assist Patient with Coping Mechanisms to Manage Anxiety; Provide Theraputic Touch for the Patient; Explain to Patient, Using a Calm Reassuring Approach and Nonmedical Terms, All Activities, Procedures, and Concerns; Instruct Patient and Family about Post Discharge Care, Limitations, Symptoms to Report and Resources Available (Ximena Awad RN) Outcome: Patient will Identify, Verbalize and Demonstrate Techniques to Control Anxiety (Ximena Awad RN) Outcome: Patient's Posture, Facial Expressions, Gestures and Activity Level will Reflect Decreased Anxiety (Ximena Awad RN) Outcome: Patient will Verbalize a Sense of Control and/or Acceptance of the Situation (Ximena Awad RN) Outcome: Patient will Identify and Utilize Support Person (Ximena Awad RN) Knowledge Deficit State: Risk For (Ximena Awad RN) Related To: Labor and Delivery Process; Treatment and Procedures; Impending Alterations in Family Dynamics; Feeding and Infant Care; Community Resources and Available Support Mechanisms (Ximena Awad RN) Goal(s): Patient will Accurately Verbalize Understanding of Plan of Care and Treatment; Patient and Family will Accurately Verbalize Understanding of the Disease Process (Ximena Awad RN) Interventions: Assess Motivation and Willingness of Patient/Family to Learn; Assess Preferred Learning Mode: One to One Instruction, Reading, Videos, Group Discussion or Demonstration; Assess Barriers to Learning: Pain, Emotional State, Language Barrier, Cognitive Impairment, Visual or Hearing Deficits; Assess Patient and Family Knowledge of Disease Process, Medications and Treatment; Discuss Therapy and/or Treatment Options, Describe Rationale Behind Management, Therapy and Treatment Recommendations; Instruct Patient and Family on Signs and Symptoms to Report; Instruct Patient and Family on Medication Effects and Side Effects; Provide Appropriate and Timely Education Using Multiple Techniques; Provide Patient and Family with Support Group Information and Resources; Give Clear and Thorough Explanations and Demonstrations (Ximena Awad RN) Outcome: Patient and Family will Verbalize Understanding of Condition, Treatment and Signs and Symptoms to Report (Ximena Awad RN) Outcome: Patient will Identify Perceived Learning Needs and Express Motivation to Learn (Ximnea Awad RN) Outcome: Patient will Verbalize Understanding of Desired Content, and/or Performs Desired Skill Prior to Discharge (Ximena Awad RN) Infection State: Risk For (Ximena Awad RN) Related To: Surgical Procedures; Invasive Procedures; Altered Tissue Integrity (Ximena Awad RN) Goal(s): The Patient will be Free of Infection, Vital Signs Stable and Lab Work within Normal Parameters (Xiemna Awad RN) Interventions: Instruct and Reinforce Proper Handwashing, Hygiene, and Care Techniques to Patient and Family; Monitor Vital Signs; Monitor Patient for the Following Signs of Infection: Fever, Abdominal Tenderness, Unusual Discharge; Monitor Aminiotic Fluid, Urine and Lochia for Color and Odor; Observe Wounds, Incisions and Invasive Line Sites for Redness, Drainage and Edema; Assess IV Sites per Hospital Policy; Monitor Lab and Test Results and Notify Provider of Abnormal Findings; Assess Nutritional Status and Promote Good Nutrition (Ximena Awad RN) Outcome: Patient will Remain Free of Infection (Ximena Awad RN) Outcome: Infection will be Recognized Early to Allow for Prompt Treatment (Ximena Awad RN) Outcome: Patient will have Vital Signs Within Expected Range (Ximena Awad RN) Fluid Volume State: Risk For (Ximena Awad RN) Related To: Prolonged Labor or Induction; Anesthesia (Ximena Awad RN) Goal(s): Patient will Achieve and Maintain a Balanced Fluid Volume Status; Hemodynamically Stable (Ximena Awad RN) Interventions: Monitor Vital Signs; Auscultate Breath Sounds; Monitor Patient for Skin Turgor, Mucous Membranes, Dry Skin, Weakness, Headaches and Confusion; Provide Oral Fluids as Ordered; Initiate and Maintain Intravenous Fluids as Ordered; Monitor Intake and Output as Indicated Per Patient Status; Accurately Measure Blood Loss; Monitor Lab and Test Results as Obtained and Notify Provider of Abnormal Findings; Monitor Patient's Weight (Ximena Awad RN) Outcome: Patient will have Clear Lung Sounds (Ximena Awad RN) Outcome: Patient will have Vital Signs within Expected Range (Ximena Awad RN) Outcome: Urine Output will be within Expected Range (Ximena Awad RN) Outcome: Patient will have Minimal Generalized or Upper Extremity Edema (Ximena Awad RN)
--- NOTE | 2016-10-11 06:00 | L&D General Admission ---
General Admit Datetime Report Generated by CPN: 10/11/2016 06:00 INFORMATION Patient Age: 21 (10/03/2016 09:05:QS system process) EDC: 10/23/2016 00:00 (10/08/2016 18:54:RAHEEM Torres) : 1 (10/08/2016 18:54:Adelaida Nelson RN) Para: 0 (10/08/2016 18:54:Adelaida Nelson RN) Term: 0 (10/08/2016 18:54:Adelaida Nelson RN) : 0 (10/08/2016 18:54:Adelaida Nelson RN) Spontaneous Abortions: 0 (10/08/2016 18:54:Adelaida Nelson RN) Induced Abortions: 0 (10/08/2016 18:54:Adelaida Nelson RN) Livin (10/08/2016 18:54:Adelaida Nelson RN) Cesareans: 0 (10/08/2016 18:54:Adelaida Nelson RN) VBACs: 0 (10/08/2016 18:54:Adelaida Nelson RN) Ectopic: 0 (10/08/2016 18:54:Adelaida Nelson RN) Multiple Births: 0 (10/08/2016 18:54:Adelaida Nelson RN) Baby, Number in Womb: 1 (10/08/2016 18:54:Adelaida Nelson RN) CARE Primary Silverlight Developer: [facility] (10/08/2016 18:54:Adelaida Nelson RN) Month of 1st Visit: 03/2016 (10/08/2016 18:54:Adelaida Nelson RN) Adequate Care: Yes (10/08/2016 18:54:Adelaida Nelson RN) Prepregnancy Weight (lb): 177 (10/08/2016 18:54:Adelaida Nelson RN) Prepregnancy Weight (kg): 80.5 (10/08/2016 18:54:QS system process) Height (in): 64 (10/10/2016 11:08:QS system process) ALLERGIES Medication Allergy: No (10/08/2016 18:54:Adelaida Nelson RN) Medication Allergies: No Known Allergies (10/09/2016) (10/09/2016 19:54:QS system process) Latex Allergy: No Latex Allergies (10/08/2016 18:54:Adelaida Nelson RN) Food Allergies: N/A (10/08/2016 18:54:Adelaida Nelson RN) Environmental Allergies: N/A (10/08/2016 18:54:Adelaida Nelson RN) COMMUNICATION Primary Language: Malian (10/08/2016 18:54:Adelaida Nelson RN) Medical Tx Preferred Language: Malian (10/08/2016 18:54:Adelaida Nelson RN) Communication Barrier(s): None (10/08/2016 18:54:Adelaida Nelson RN) DEMOGRAPHICS Address: [address] [place] [address] (10/03/2016 09:05:QS system process) Zipcode: [address] (10/03/2016 09:05:QS system process) Home (10/03/2016 09:05:QS system process) Work (10/08/2016 18:50:QS system process) SSN: [id number] (10/08/2016 18:50:QS system process) Next of Kin Name: NATALIE HANCOCK (10/03/2016 09:05:QS system process) Next of Kin (10/03/2016 09:05:QS system process) Next of Kin Relationship: MO (10/03/2016 09:05:QS system process) Date of : 1995 (10/03/2016 09:05:QS system process) Marital Status: Single (10/03/2016 09:05:QS system process) Sex: Female (10/03/2016 09:05:QS system process) Race: Other (10/03/2016 09:05:QS system process) Ethnicity: Non- or (10/03/2016 09:05:QS system process) Scientology: None (10/03/2016 09:05:QS system process) DRUG AND ALCOHOL USE Alcohol: No (10/08/2016 18:54:Adelaida Nelson RN) Cigarettes: Never Smoker. [id number] (10/08/2016 18:54:Adelaida Nelson RN) Marijuana: No (10/08/2016 18:54:Adelaida Nelson RN) Cocaine: No (10/08/2016 18:54:Adelaida Nelson RN) Other Illicit Drugs: No (10/08/2016 18:54:Adelaida Nelson RN) VACCINE HISTORY Influenza Vaccine: No (10/08/2016 18:54:Adelaida Nelson RN) Pneumococcal Vaccine: No (10/08/2016 18:54:Adelaida Nelson RN) Tetanus Vaccine: Yes (10/08/2016 18:54:Adelaida Nelson RN) Tdap Vaccine: Yes (10/08/2016 18:54:Adelaida Nelson RN) Hepatitis B Vaccine: Yes (10/08/2016 18:54:Adelaida Nelson RN) Refuse And Recycling Worker: [facility] (10/08/2016 18:54:Adelaida Nelson RN) Feeding Preference: Breast (10/08/2016 18:54:Adelaida Nelson RN) Benefit of Breast Feed Discussed: Yes (10/08/2016 18:54:Adelaida Nelson RN) Circumcision: N/A (10/08/2016 18:54:Adelaida Nelson RN) Classes Attended: No (10/08/2016 18:54:Adelaida Nelson RN) Tubal Ligation: No (10/08/2016 18:54:Adelaida Nelson RN) Tubal Authorization Signed: N/A (10/08/2016 18:54:Adelaida Nelson RN) Consent: N/A (10/08/2016 18:54:Adelaida Nelson RN) Consent Signed: N/A (10/08/2016 18:54:Adelaida Nelson RN) Pain Management Plans: Natural (10/08/2016 18:54:Adelaida Nelson RN) Plans for Labor and Delivery: None (10/08/2016 18:54:Adelaida Nelson RN) Support Person: Natalie (10/08/2016 18:54:Adelaida Nelson RN) Support Person Relationship: Mother (10/08/2016 18:54:Adelaida Nelson RN) Cultural/Spritual Practice: No (10/08/2016 18:54:Adelaida Nelson RN) Spir/Cult Dietary Needs: No (10/08/2016 18:54:Adelaida Nelson RN) LIVING SITUATION/DISCHARGE PLAN Living Arrangements: House (10/08/2016 18:54:Adelaida Nelson RN) Adequate Access to:: Electric; Heat; Refrigeration; Plumbing/Running water; Phone; Transportation (10/08/2016 18:54:Adelaida Nelson RN) WIC Program: Yes (10/08/2016 18:54:Adelaida Nelson RN) Discharge Ultimate Hoops Scoreboard Operator Person: Mother (10/08/2016 18:54:Adelaida Nelson RN) Person to Help after Discharge: Mother (10/08/2016 18:54:Adelaida Nelson RN) Currently Using Commun Resources: Yes (10/08/2016 18:54:Adelaida Nelson RN) Specify Current Resource Used: Medicaid (10/08/2016 18:54:Adelaida Nelson RN) Outside Agency/Regulatory Services Consultant: No (10/08/2016 18:54:Adelaida Nelson RN) Car Seat for Discharge: Yes (10/08/2016 18:54:Adelaida Nelson RN) Adoption Requested: No (10/08/2016 18:54:Adelaida Nelson RN) Pt Contact w/infant Post : N/A (10/08/2016 18:54:Adelaida Nelson RN) LABS Blood Type: A Positive (10/08/2016 18:54:Adelaida Nelson RN) Antibody Screen: Negative (10/08/2016 18:54:Adelaida Nleson RN) Rho(G) this : Not Applicable (10/08/2016 18:54:Adelaida Nelson RN) Hemoglobin: 11.2 L (10/09/2016 20:20:QS system process) Hematocrit: 34.2 L (10/09/2016 20:20:QS system process) MCV: 80 (10/09/2016 20:20:QS system process) Group Beta Strep: Positive (10/08/2016 18:54:Adelaida Nelson RN) Gonorrhea: Negative (10/08/2016 18:54:Adelaida Nelson RN) Chlamydia: Negative (10/08/2016 18:54:Adelaida Nelson RN) RPR/VDRL: Nonreactive (10/08/2016 18:54:Adelaida Nelson RN) HIV Exposure Test: Negative (10/08/2016 18:54:Adelaida Nelson RN) Hepatitis B: Negative (10/08/2016 18:54:Adelaida Nelson RN) Rubella: Immune (10/08/2016 18:54:Adelaida Nelson RN) OB/PREVIOUS HISTORY History of Previous : No (10/08/2016 18:54:Adelaida Nelson RN) History of Gestational Diabetes: No (10/08/2016 18:54:Adelaida Nelson RN) History of PIH: No (10/08/2016 18:54:Adelaida Nelson RN) History of Incompetent Cervix: No (10/08/2016 18:54:Adelaida Nelson RN) History of Placenta Previa/Abrup: No (10/08/2016 18:54:Adelaida Nelson RN) History of Macrosomia: No (10/08/2016 18:54:Adelaida Nelson RN) History of IUGR: No (10/08/2016 18:54:Adelaida Nelson RN) History of Hemorrhage: No (10/08/2016 18:54:Adelaida Nelson RN) History of Loss/Stillborn: No (10/08/2016 18:54:Adelaida Nelson RN) History of : No (10/08/2016 18:54:Adelaida Nelson RN) History of D (Rh) Sensitization: No (10/08/2016 18:54:Adelaida Nelson RN) History Recurrent Loss/Stillborn: No (10/08/2016 18:54:Adelaida Nelson RN) History Depression/PP Depression: No (10/08/2016 18:54:Adelaida Nelson RN) History of Uterine Anomaly/ELIZA: No (10/08/2016 18:54:Adelaida Nelson RN) History of Infertility: No (10/08/2016 18:54:Adelaida Nelson RN) History of ART Treatment: No (10/08/2016 18:54:Adelaida Nelson RN) History of ELIZA: No (10/08/2016 18:54:Adelaida Nelson RN) MEDICAL HISTORY Med Hx Diabetes: No (10/08/2016 18:54:Adelaida Nelson RN) Med Hx Hypertension: No (10/08/2016 18:54:Adelaida Nelson RN) Med Hx Heart Disease: No (10/08/2016 18:54:Adelaida Nelson RN) Med Hx Autoimmune Disorder: No (10/08/2016 18:54:Adelaida Nelson RN) Med Hx Kidney Disease/UTI: No (10/08/2016 18:54:Adelaida Nelson RN) Med Hx Neurologic/Epilepsy: No (10/08/2016 18:54:Adelaida Nelson RN) Med Hx Psychiatric Disorders: No (10/08/2016 18:54:Adelaida Nelson RN) Med Hx Hepatitis/Liver Disease: No (10/08/2016 18:54:Adelaida Nelson RN) Med Hx Varicosities/Phlebitis: No (10/08/2016 18:54:Adelaida Nelson RN) Med Hx Thyroid Dysfunction: No (10/08/2016 18:54:Adelaida Nelson RN) Med Hx Trauma/Violence: No (10/08/2016 18:54:Adelaida Nelson RN) Med Hx Blood Transfusion: No (10/08/2016 18:54:Adelaida Nelson RN) Med Hx Pulmonary (Asthma,TB): No (10/08/2016 18:54:Adelaida Nelson RN) Med Hx Breast: No (10/08/2016 18:54:Adelaida Nelson RN) Med Hx CRT Surgery: No (10/08/2016 18:54:Adelaida Nelson RN) Med Hx Hospitalization/Surgery: No (10/08/2016 18:54:Adelaida Nelson RN) Med Hx Anesthetic Complications: No (10/08/2016 18:54:Adelaida Nelson RN) Med Hx Abnormal Pap Smear: No (10/08/2016 18:54:Adelaida Nelosn RN) Other Medical Diseases: No (10/08/2016 18:54:Adelaida Nelson RN) Med Hx Significant Family Hx: No (10/08/2016 18:54:Adelaida Nelson RN) INFECTIOUS HISTORY Inf Hx Gonorrhea: No (10/08/2016 18:54:Adelaida Nelson RN) Inf Hx Chlamydia: No (10/08/2016 18:54:Adelaida Nelson RN) Inf Hx Syphilis: No (10/08/2016 18:54:Adelaida Nelson RN) Inf Hx HIV/AIDS: No (10/08/2016 18:54:Adelaida Nelson RN) Inf Hx Human Papilloma Virus: No (10/08/2016 18:54:Adelaida Nelson RN) Inf Hx Pt/Partner Genital Herpes: No (10/08/2016 18:54:Adelaida Nelson RN) Inf Hx Tuberculosis/Exposure: No (10/08/2016 18:54:Adelaida Nelson RN) Inf Hx Hepatitis B,C: No (10/08/2016 18:54:Adelaida Nelson RN) Inf Hx Rash or Viral Illness: No (10/08/2016 18:54:Adelaida Nelson RN) GENETIC HISTORY Gen Hx Age >=35 at YVETTE: No (10/08/2016 18:54:Adelaida Nelson RN) Gen Hx Thalassemia: No (10/08/2016 18:54:Adelaida Nelson RN) Gen Hx Congenital Heart Defect: No (10/08/2016 18:54:Adelaida Nelson RN) Gen Hx Neural Tube Defect: No (10/08/2016 18:54:Adelaida Nelson RN) Gen Hx Down's Syndrome: No (10/08/2016 18:54:Adelaida Nelson RN) Gen Hx Kevin-Sachs: No (10/08/2016 18:54:Adelaida Nelson RN) Gen Hx Valorie: No (10/08/2016 18:54:Adelaida Nelson RN) Gen Hx Familial Dysautonomia: No (10/08/2016 18:54:Adelaida Nelson RN) Gen Hx Sickle Cell Disease/Trait: No (10/08/2016 18:54:Adelaida Nelson RN) Gen Hx Hemophilia/Blood Disorder: No (10/08/2016 18:54:Adelaida Nelson RN) Gen Hx Muscular Dystrophy: No (10/08/2016 18:54:Adelaida Nelson RN) Gen Hx Cystic Fibrosis: No (10/08/2016 18:54:Adelaida Nelson RN) Gen Hx Huntingtons Chorea: No (10/08/2016 18:54:Adelaida Nelson RN) Gen Hx Mental Retardation/Autism: No (10/08/2016 18:54:Adelaida Nelson RN) Gen Hx Tested for Fragile X: No (10/08/2016 18:54:Adelaida Nelson RN) Gen Hx Other Inher/Chromosomal: No (10/08/2016 18:54:Adelaida Nelson RN) Gen Hx Maternal Metabolic DO: No (10/08/2016 18:54:Adelaida Nelson RN) Gen Hx Pt Father or FOB Defect: No (10/08/2016 18:54:Adelaida Nelson RN) Gen Hx Other Genetic History: No (10/08/2016 18:54:Adelaida Nelson RN) Gen Hx Drugs/Meds since LMP: No (10/08/2016 18:54:Adelaida Nelson RN)
[2016-10-11] MEDS: IBUPROFEN 800 MG TABLET PO SCH (06:10)
--- NOTE | 2016-10-11 06:15 | L&D Care Plan ---
LD CARE PLANS Datetime Report Generated by CPN: 10/11/2016 06:15 Datetime: 10/09/2016 20:08 Pain State: Risk For (Ximena Awad, RN) Related To: Labor and Delivery Process (Ximena Awad, RN) Goal(s): Patients Pain will be Assessed and Managed; Patient will Verbalize Adequate Relief of Pain or the Ability to Carney with Current Pain (Ximena Awad, RN) Interventions: Assess Pain Severity on Scale of 0 (None) to 5 (Severe); Assess Type, Location and Intensity of Pain Each Time Client Reports Discomfort and Notify Provider if Unusal Pain Develops; Encourage Proper Breathing and Relaxation Techniques; Offer Alternatives Such as Repositioning, Calm Environment, Massages, Diversional Activities, Ice Pack, Splinting, and Ambulation; Administer Analgesics as Ordered; Assist with Epidural Placement as Appropriate; Evaluate Therapeutic Effectiveness of Medication and Treatments (Ximena Awad RN) Outcome: Patient will Report Absence or Relief of Pain Consistent with Established Pain Goal (Ximena Awad RN) Outcome: Patient will have a Decrease in Signs and Symptoms of Discomfort (Ximena Awad RN) Outcome: Pain will be Controlled During Procedures (Ximena Awad RN) Anxiety State: Risk For (Ximena Awad RN) Related To: Labor and Delivery Process; Fear of Unknown; Situational Crisis; Medical Interventions; Significant Life Event (Ximena Awad RN) Goal(s): Patient will have Decreased Anxiety and be able to Function at Acceptable Levels (Ximena Awad RN) Interventions: Assess Verbal and Nonverbal Behavioral Indicators of Anxiety; Assist Patient to Identify and Verbalize Symptoms of Anxiety; Identify and Demonstrate Techniques to Control Anxiety; Assist Patient with Coping Mechanisms to Manage Anxiety; Provide Theraputic Touch for the Patient; Explain to Patient, Using a Calm Reassuring Approach and Nonmedical Terms, All Activities, Procedures, and Concerns; Instruct Patient and Family about Post Discharge Care, Limitations, Symptoms to Report and Resources Available (Ximena Awad RN) Outcome: Patient will Identify, Verbalize and Demonstrate Techniques to Control Anxiety (Ximena Awad RN) Outcome: Patient's Posture, Facial Expressions, Gestures and Activity Level will Reflect Decreased Anxiety (Ximena Awad RN) Outcome: Patient will Verbalize a Sense of Control and/or Acceptance of the Situation (Ximena Awad RN) Outcome: Patient will Identify and Utilize Support Person (Ximena Awad RN) Knowledge Deficit State: Risk For (Ximena Awad RN) Related To: Labor and Delivery Process; Treatment and Procedures; Impending Alterations in Family Dynamics; Feeding and Infant Care; Community Resources and Available Support Mechanisms (Ximena Awad RN) Goal(s): Patient will Accurately Verbalize Understanding of Plan of Care and Treatment; Patient and Family will Accurately Verbalize Understanding of the Disease Process (Ximena Awad RN) Interventions: Assess Motivation and Willingness of Patient/Family to Learn; Assess Preferred Learning Mode: One to One Instruction, Reading, Videos, Group Discussion or Demonstration; Assess Barriers to Learning: Pain, Emotional State, Language Barrier, Cognitive Impairment, Visual or Hearing Deficits; Assess Patient and Family Knowledge of Disease Process, Medications and Treatment; Discuss Therapy and/or Treatment Options, Describe Rationale Behind Management, Therapy and Treatment Recommendations; Instruct Patient and Family on Signs and Symptoms to Report; Instruct Patient and Family on Medication Effects and Side Effects; Provide Appropriate and Timely Education Using Multiple Techniques; Provide Patient and Family with Support Group Information and Resources; Give Clear and Thorough Explanations and Demonstrations (Ximena Awad RN) Outcome: Patient and Family will Verbalize Understanding of Condition, Treatment and Signs and Symptoms to Report (Ximena Awad RN) Outcome: Patient will Identify Perceived Learning Needs and Express Motivation to Learn (Ximena Awad RN) Outcome: Patient will Verbalize Understanding of Desired Content, and/or Performs Desired Skill Prior to Discharge (Ximena Awad RN) Infection State: Risk For (Ximena Awad RN) Related To: Surgical Procedures; Invasive Procedures; Altered Tissue Integrity (Ximena Awad RN) Goal(s): The Patient will be Free of Infection, Vital Signs Stable and Lab Work within Normal Parameters (Ximena Awad RN) Interventions: Instruct and Reinforce Proper Handwashing, Hygiene, and Care Techniques to Patient and Family; Monitor Vital Signs; Monitor Patient for the Following Signs of Infection: Fever, Abdominal Tenderness, Unusual Discharge; Monitor Aminiotic Fluid, Urine and Lochia for Color and Odor; Observe Wounds, Incisions and Invasive Line Sites for Redness, Drainage and Edema; Assess IV Sites per Hospital Policy; Monitor Lab and Test Results and Notify Provider of Abnormal Findings; Assess Nutritional Status and Promote Good Nutrition (Ximena Awad RN) Outcome: Patient will Remain Free of Infection (Ximena Awad RN) Outcome: Infection will be Recognized Early to Allow for Prompt Treatment (Ximena Awad RN) Outcome: Patient will have Vital Signs Within Expected Range (Ximena Awad RN) Fluid Volume State: Risk For (Ximena Awad RN) Related To: Prolonged Labor or Induction; Anesthesia (Ximena Awad RN) Goal(s): Patient will Achieve and Maintain a Balanced Fluid Volume Status; Hemodynamically Stable (Ximena Awad RN) Interventions: Monitor Vital Signs; Auscultate Breath Sounds; Monitor Patient for Skin Turgor, Mucous Membranes, Dry Skin, Weakness, Headaches and Confusion; Provide Oral Fluids as Ordered; Initiate and Maintain Intravenous Fluids as Ordered; Monitor Intake and Output as Indicated Per Patient Status; Accurately Measure Blood Loss; Monitor Lab and Test Results as Obtained and Notify Provider of Abnormal Findings; Monitor Patient's Weight (Ximena Awad RN) Outcome: Patient will have Clear Lung Sounds (Ximena Awad RN) Outcome: Patient will have Vital Signs within Expected Range (Ximena Awad RN) Outcome: Urine Output will be within Expected Range (Ximena Awad RN) Outcome: Patient will have Minimal Generalized or Upper Extremity Edema (Ximena Awad RN)
[2016-10-11 07:39] LABS: HEMATOCRIT 27.4 % (36.0-47.0); HGB HCT DIFFERENCE -0.7; MEAN CORPUSCULAR HGB CONC 32.4 g/dL (32.0-36.0); MEAN CORPUSCULAR VOLUME 80 fl (80-97); RED BLOOD COUNT 3.41 10^6/uL (3.72-5.28); RED CELL DISTRIBUTION WIDTH 13.7 % (11.5-14.0); WHITE BLOOD COUNT 12.1 10^3/uL (4.0-10.5)
[2016-10-11 07:48] LABS: HEMOGLOBIN 8.9 g/dL (12.0-15.5)
[2016-10-11 09:08] VITALS: BP 121/55
[2016-10-11] MEDS: DOCUSATE SODIUM 100 MG CAPSULE PO SCH (10:40)
[2016-10-11] MEDS: PRENATAL VITAMIN W-O CA NO5/FE FUMARATE/FA CAPSULE PO SCH (10:40)
[2016-10-11] MEDS: SENNOSIDES/DOCUSATE 8.6-50 MG 1 EACH TABLET PO SCH (10:40)
[2016-10-11] MEDS: FERROUS SULFATE 325 MG TABLET PO SCH (10:40)
--- NOTE | 2016-10-11 11:46 | PDOC DISCHARGE SUMMARY ---
Final Diagnosis Discharge Date: 10/11/16 - Final Diagnosis (1) Anemia due to acute blood loss Is this a current diagnosis for this admission?: Yes (2) Vaginal delivery Is this a current diagnosis for this admission?: Yes Discharge Data - Discharge Medication Home Medications: Ferrous Sulfate 1 tab PO DAILY 10/08/16 Vit/Iron Fumarate/FA [ Tablet] 1 tab PO DAILY 10/08/16 Reason(s) for Admission: Onset of Labor Procedures: NST Intrapartum Procedure(s): Spontaneous Vaginal Delivery Complication(s): Laceration-Vaginal Laceration-Degree: 1st - Diagnosis Test Laboratory: Temp Pulse Resp BP Pulse Ox 98.0 F 85 20 121/55 L 100 10/11/16 08:36 10/11/16 08:36 10/11/16 08:36 10/11/16 08:36 10/11/16 08:36 10/09/16 10/09/16 10/11/16 19:50 20:20 07:27 RBC 4.30 3.41 L Hgb 11.2 L 8.9 L D Hct 34.2 L 27.4 L Urine Opiates Screen NEGATIVE - Discharge information/Instructions Discharge Activity: Activity As Tolerated, Pelvic Rest Discharge Diet: Regular Disposition: HOME, SELF-CARE Follow up with: [facility] in: 4, Weeks
[2016-10-11] MEDS ORDERED: IBUPROFEN 800 MG TABLET ONE (14:02)
[2016-10-11] MEDS ORDERED: ACETAMINOPHEN WITH CODEINE #3 TABLET PO PRN ×2 (14:23)
[2016-10-11] MEDS ORDERED: ZOLPIDEM TARTRATE 5 MG TABLET PO PRN (14:46)
[2016-10-11] MEDS ORDERED: FERROUS SULFATE 325 MG TABLET PO SCH (18:00)
[2016-10-11] MEDS ORDERED: DOCUSATE SODIUM 100 MG CAPSULE PO SCH (18:00)
[2016-10-11] MEDS ORDERED: IBUPROFEN 800 MG TABLET PO SCH (22:00)
--- NOTE | 2016-10-13 18:01 | L&D Current Admission ---
Current Admit Datetime Report Generated by CPN: 10/13/2016 18:00 ADMISSION INFORMATION Current Admit Date/Time: 10/09/2016 20:09 (10/08/2016 19:00:Antoinette Chery RN) Reason for Admission: Rupture of Membranes (10/08/2016 19:00:Antoinette Chery RN) Chief Complaint: Suspected Rupture of Membranes (10/09/2016 20:11:Antoinette Chery RN) Medications During : Ferrous Sulfate (Iron); Vitamin (10/08/2016 19:00:Antoinette Chery RN) EGA per Dates: 38.0 (10/08/2016 19:00:QS system process) Reason for Induction: Not Applicable (10/08/2016 19:00:Antoinette Chery RN) Records Available: Yes (10/08/2016 19:00:Antoinette Chery RN) General Admission Information: Confirmed (10/08/2016 19:00:Antoinette Chery RN) General Admission Reviewed By: Leidy MACIEL (10/08/2016 19:00:Antoinette Chery RN) BELONGINGS/ADVANCED DIRECTIVES Advance Direct for Healthcare: No, and Wants No Information (10/08/2016 19:00:Antoinette Chery RN) Durable Power of Prior Authorization Nurse: No (10/08/2016 19:00:Antoinette Chery RN) Living Will: No (10/08/2016 19:00:Antoinette Chery RN) Organ Donor: No (10/08/2016 19:00:Antoinette Chery RN) Pt Rights Information Given: Yes (10/08/2016 19:00:Antoinette Chery RN) Patient Rights Comments: Pt access (10/08/2016 19:00:Antoinette Chery RN) LEARNING ASSESSMENT Knowledge Level: Understands L_D Process; Understands Care Activities (10/08/2016 19:00:Antoinette Chery RN) Barriers to Learning: Visual Deficit (10/08/2016 19:00:Antoinette Chery RN) Learning Readiness: Motivated (10/08/2016 19:00:Antoinette Chery RN) Learns Best By: 1 to 1 Instruction (10/08/2016 19:00:Antoinette Chery RN) Learning Needs: Labor and Delivery Process; Pain Management; Symptoms to Report (10/08/2016 19:00:Antoinette Chery RN) DOMESTIC VIOLANCE SCREENING Dom Viol Threatened/Hurt: No (10/08/2016 19:00:Antoinette Chery RN) Hx of Abuse/Neglect past 2yrs: No (10/08/2016 19:00:Antoinette Chery RN) Feel Unsafe Going Home: No (10/08/2016 19:00:Antoinette Chery RN) Addt'l Observ Indicating Abuse: No (10/08/2016 19:00:Antoinette Chery RN) Reason Unable to Complete Screen: N/A, Screen Completed (10/08/2016 19:00:Antoinette Chery RN) Considered Personal Harm/Suicide: No (10/08/2016 19:00:Antoinette Chery RN) NUTRITIONAL/FUNCTIONAL SCREENING Problem with Appetite >5 Days: No (10/08/2016 19:00:Antoinette Chery RN) Chew/Swallow Difficulties: No (10/08/2016 19:00:Antoinette Chery RN) Inappropriate Wt Gain/Loss: No (10/08/2016 19:00:Antoinette Chery RN) Presence Skin Breakdown/Ulcer: No (10/08/2016 19:00:Antoinette Chery RN) Special Diet: No (10/08/2016 19:00:Antoinette Chery RN) Pt Requests Senior Process Analyst Visit: No (10/08/2016 19:00:Antoinette Chery RN) Hx of Any of the Following?: N/A (10/08/2016 19:00:Antoinette Chery RN) New Diagnosis of: N/A (10/08/2016 19:00:Antoinette Chery RN) Requires Assist w/Ambulation: No (10/08/2016 19:00:Antoinette Chery RN) Uses Assist Device to Ambulate: No (10/08/2016 19:00:Antoinette Chery RN) Pt Requires Help w/ADL's: No (10/08/2016 19:00:Antoinette Chery RN)
--- NOTE | 2016-10-13 18:01 | L&D General Admission ---
General Admit Datetime Report Generated by CPN: 10/13/2016 18:00 INFORMATION Patient Age: 21 (10/03/2016 09:05:QS system process) EDC: 10/23/2016 00:00 (10/08/2016 18:54:RAHEEM Torres) : 1 (10/08/2016 18:54:Adelaida Nelson RN) Para: 0 (10/08/2016 18:54:Adelaida Nelson RN) Term: 0 (10/08/2016 18:54:Adelaida Nelson RN) : 0 (10/08/2016 18:54:Adelaida Nelson RN) Spontaneous Abortions: 0 (10/08/2016 18:54:Adelaida Nelson RN) Induced Abortions: 0 (10/08/2016 18:54:Adelaida Nelson RN) Livin (10/08/2016 18:54:Adelaida Nelson RN) Cesareans: 0 (10/08/2016 18:54:Adelaida Nelson RN) VBACs: 0 (10/08/2016 18:54:Adelaida Nelson RN) Ectopic: 0 (10/08/2016 18:54:Adelaidajairon Nelson RN) Multiple Births: 0 (10/08/2016 18:54:Adelaida Nelson RN) Baby, Number in Womb: 1 (10/08/2016 18:54:Adelaida Nelson RN) CARE Primary Press Setter: [facility] (10/08/2016 18:54:Adelaida Nelson RN) Month of 1st Visit: 03/2016 (10/08/2016 18:54:Adelaida Neslon RN) Adequate Care: Yes (10/08/2016 18:54:Adelaida Nelson RN) Prepregnancy Weight (lb): 177 (10/08/2016 18:54:Adelaida Nelson RN) Prepregnancy Weight (kg): 80.5 (10/08/2016 18:54:QS system process) Height (in): 64 (10/11/2016 13:15:QS system process) ALLERGIES Medication Allergy: No (10/08/2016 18:54:Adelaida Nelson RN) Medication Allergies: No Known Allergies (10/09/2016) (10/09/2016 19:54:QS system process) Latex Allergy: No Latex Allergies (10/08/2016 18:54:Adelaida Nelson RN) Food Allergies: N/A (10/08/2016 18:54:Adelaida Nelson RN) Environmental Allergies: N/A (10/08/2016 18:54:Adelaida Nelson RN) COMMUNICATION Primary Language: Bhutanese (10/08/2016 18:54:Adelaida Neslon RN) Medical Tx Preferred Language: Bhutanese (10/08/2016 18:54:Adelaida Nelson RN) Communication Barrier(s): None (10/08/2016 18:54:Adelaida Nelson RN) DEMOGRAPHICS Address: [address] [address] (10/03/2016 09:05:QS system process) Zipcode: [address] (10/03/2016 09:05:QS system process) Home (10/03/2016 09:05:QS system process) Work (10/08/2016 18:50:QS system process) SSN: [id number] (10/08/2016 18:50:QS system process) Next of Kin Name: NATALIE HANCOCK (10/03/2016 09:05:QS system process) Next of Kin (10/03/2016 09:05:QS system process) Next of Kin Relationship: MO (10/03/2016 09:05:QS system process) Date of : 1995 (10/03/2016 09:05:QS system process) Marital Status: Single (10/03/2016 09:05:QS system process) Sex: Female (10/03/2016 09:05:QS system process) Race: Other (10/03/2016 09:05:QS system process) Ethnicity: Non- or (10/03/2016 09:05:QS system process) Jewish: None (10/03/2016 09:05:QS system process) DRUG AND ALCOHOL USE Alcohol: No (10/08/2016 18:54:Adelaida Nelson RN) Cigarettes: Never Smoker. [id number] (10/08/2016 18:54:Adelaida Nelson RN) Marijuana: No (10/08/2016 18:54:Adelaida Nelson RN) Cocaine: No (10/08/2016 18:54:Adelaida Nelson RN) Other Illicit Drugs: No (10/08/2016 18:54:Adelaida Nelson RN) VACCINE HISTORY Influenza Vaccine: No (10/08/2016 18:54:Adelaida Nelson RN) Pneumococcal Vaccine: No (10/08/2016 18:54:Adelaida Nelson RN) Tetanus Vaccine: Yes (10/08/2016 18:54:Adelaida Nelson RN) Tdap Vaccine: Yes (10/08/2016 18:54:Adelaida Nelson RN) Hepatitis B Vaccine: Yes (10/08/2016 18:54:Adelaida Nelson RN) Tube Washer: [facility] (10/08/2016 18:54:Adelaida Nelson RN) Feeding Preference: Breast (10/08/2016 18:54:Adelaida Nelson RN) Benefit of Breast Feed Discussed: Yes (10/08/2016 18:54:Adelaida Nelson RN) Circumcision: N/A (10/08/2016 18:54:Adelaida Nelson RN) Classes Attended: No (10/08/2016 18:54:Adelaida Nelson RN) Tubal Ligation: No (10/08/2016 18:54:Adelaida Nelson RN) Tubal Authorization Signed: N/A (10/08/2016 18:54:Adelaida Nelson RN) Consent: N/A (10/08/2016 18:54:Adelaida Nelson RN) Consent Signed: N/A (10/08/2016 18:54:Adelaida Nelson RN) Pain Management Plans: Natural (10/08/2016 18:54:Adelaida Nelson RN) Plans for Labor and Delivery: None (10/08/2016 18:54:Adelaida Nelson RN) Support Person: Natalie (10/08/2016 18:54:Adelaida Nelson RN) Support Person Relationship: Mother (10/08/2016 18:54:Adelaida Nelson RN) Cultural/Spritual Practice: No (10/08/2016 18:54:Adelaida Nelson RN) Spir/Cult Dietary Needs: No (10/08/2016 18:54:Adelaida Nelson RN) LIVING SITUATION/DISCHARGE PLAN Living Arrangements: House (10/08/2016 18:54:Adelaida Nelson RN) Adequate Access to:: Electric; Heat; Refrigeration; Plumbing/Running water; Phone; Transportation (10/08/2016 18:54:Adelaida Nelson RN) WIC Program: Yes (10/08/2016 18:54:Adelaida Nelson RN) Discharge Design Architect Person: Mother (10/08/2016 18:54:Adelaida Nelson RN) Person to Help after Discharge: Mother (10/08/2016 18:54:Adelaida Nelson RN) Currently Using Commun Resources: Yes (10/08/2016 18:54:Adelaida Nelson RN) Specify Current Resource Used: Medicaid (10/08/2016 18:54:Adelaida Nelson RN) Outside Agency/Dynamic Balancer Set Up Worker: No (10/08/2016 18:54:Adelaida Nelson RN) Car Seat for Discharge: Yes (10/08/2016 18:54:Adelaida Nelson RN) Adoption Requested: No (10/08/2016 18:54:Adelaida Nelson RN) Pt Contact w/infant Post : N/A (10/08/2016 18:54:Adelaida Nelson RN) LABS Blood Type: A Positive (10/08/2016 18:54:Adelaida Nelson RN) Antibody Screen: Negative (10/08/2016 18:54:Adelaida Nelson RN) Rho(G) this : Not Applicable (10/08/2016 18:54:Adelaida Nelson RN) Hemoglobin: 8.9 L (10/11/2016 07:27:QS system process) Hematocrit: 27.4 L (10/11/2016 07:27:QS system process) MCV: 80 (10/11/2016 07:27:QS system process) Group Beta Strep: Positive (10/08/2016 18:54:Adelaida Nelson RN) Gonorrhea: Negative (10/08/2016 18:54:Adelaida Nelson RN) Chlamydia: Negative (10/08/2016 18:54:Adelaida Nelson RN) RPR/VDRL: Nonreactive (10/08/2016 18:54:Adelaida Nelson RN) HIV Exposure Test: Negative (10/08/2016 18:54:Adelaida Nelson RN) Hepatitis B: Negative (10/08/2016 18:54:Adelaida Nelson RN) Rubella: Immune (10/08/2016 18:54:Adelaida Nelson RN) OB/PREVIOUS HISTORY History of Previous : No (10/08/2016 18:54:Adelaida Nelson RN) History of Gestational Diabetes: No (10/08/2016 18:54:Adelaida Nelson RN) History of PIH: No (10/08/2016 18:54:Adelaida Nelson RN) History of Incompetent Cervix: No (10/08/2016 18:54:Adelaida Nelson RN) History of Placenta Previa/Abrup: No (10/08/2016 18:54:Adelaida Nelson RN) History of Macrosomia: No (10/08/2016 18:54:Adelaida Nelson RN) History of IUGR: No (10/08/2016 18:54:Adelaida Nelson RN) History of Hemorrhage: No (10/08/2016 18:54:Adelaida Nelson RN) History of Loss/Stillborn: No (10/08/2016 18:54:Adelaida Nelson RN) History of : No (10/08/2016 18:54:Adelaida Nelson RN) History of D (Rh) Sensitization: No (10/08/2016 18:54:Adelaida Nelson RN) History Recurrent Loss/Stillborn: No (10/08/2016 18:54:Adelaida Nelson RN) History Depression/PP Depression: No (10/08/2016 18:54:Adelaida Nelson RN) History of Uterine Anomaly/ELIZA: No (10/08/2016 18:54:Adelaida Nelson RN) History of Infertility: No (10/08/2016 18:54:Adelaida Nelson RN) History of ART Treatment: No (10/08/2016 18:54:Adelaida Nelson RN) History of ELIZA: No (10/08/2016 18:54:Adelaida Nelson RN) MEDICAL HISTORY Med Hx Diabetes: No (10/08/2016 18:54:Adelaida Nelson RN) Med Hx Hypertension: No (10/08/2016 18:54:Adelaida Nelson RN) Med Hx Heart Disease: No (10/08/2016 18:54:Adelaida Nleson RN) Med Hx Autoimmune Disorder: No (10/08/2016 18:54:Adelaida Nelson RN) Med Hx Kidney Disease/UTI: No (10/08/2016 18:54:Adelaida Nelson RN) Med Hx Neurologic/Epilepsy: No (10/08/2016 18:54:Adelaida Nelson RN) Med Hx Psychiatric Disorders: No (10/08/2016 18:54:Adelaida Nelson RN) Med Hx Hepatitis/Liver Disease: No (10/08/2016 18:54:Adelaida Nelson RN) Med Hx Varicosities/Phlebitis: No (10/08/2016 18:54:Adelaida Nelson RN) Med Hx Thyroid Dysfunction: No (10/08/2016 18:54:Adelaida Nelson RN) Med Hx Trauma/Violence: No (10/08/2016 18:54:Adelaida Nelson RN) Med Hx Blood Transfusion: No (10/08/2016 18:54:Adelaida Nelson RN) Med Hx Pulmonary (Asthma,TB): No (10/08/2016 18:54:Adelaida Nelson RN) Med Hx Breast: No (10/08/2016 18:54:Adelaida Nelson RN) Med Hx CENTER SALES AND SERVICE ASSOCIATE Surgery: No (10/08/2016 18:54:Adelaida Nelson RN) Med Hx Hospitalization/Surgery: No (10/08/2016 18:54:Adelaida Nelson RN) Med Hx Anesthetic Complications: No (10/08/2016 18:54:Adelaida Nelson RN) Med Hx Abnormal Pap Smear: No (10/08/2016 18:54:Adelaida Nelson RN) Other Medical Diseases: No (10/08/2016 18:54:Adelaida Nelson RN) Med Hx Significant Family Hx: No (10/08/2016 18:54:Adelaida Nelson RN) INFECTIOUS HISTORY Inf Hx Gonorrhea: No (10/08/2016 18:54:Adelaida Nelson RN) Inf Hx Chlamydia: No (10/08/2016 18:54:Adelaida Nelson RN) Inf Hx Syphilis: No (10/08/2016 18:54:Adelaida Nelson RN) Inf Hx HIV/AIDS: No (10/08/2016 18:54:Adelaida Nelson RN) Inf Hx Human Papilloma Virus: No (10/08/2016 18:54:Adelaida Nelson RN) Inf Hx Pt/Partner Genital Herpes: No (10/08/2016 18:54:Adelaida Nelson RN) Inf Hx Tuberculosis/Exposure: No (10/08/2016 18:54:Adelaida Nelson RN) Inf Hx Hepatitis B,C: No (10/08/2016 18:54:Adelaida Nelson RN) Inf Hx Rash or Viral Illness: No (10/08/2016 18:54:Adelaida Nelson RN) GENETIC HISTORY Gen Hx Age >=35 at YVETTE: No (10/08/2016 18:54:Adelaida Nelson RN) Gen Hx Thalassemia: No (10/08/2016 18:54:Adelaida Nelson RN) Gen Hx Congenital Heart Defect: No (10/08/2016 18:54:Adelaida Nelson RN) Gen Hx Neural Tube Defect: No (10/08/2016 18:54:Adelaida Nelson RN) Gen Hx Down's Syndrome: No (10/08/2016 18:54:Adelaida Nelson RN) Gen Hx Kevin-Sachs: No (10/08/2016 18:54:Adelaida Nelson RN) Gen Hx Valorie: No (10/08/2016 18:54:Adelaida Nelson RN) Gen Hx Familial Dysautonomia: No (10/08/2016 18:54:Adelaida Nelson RN) Gen Hx Sickle Cell Disease/Trait: No (10/08/2016 18:54:Adelaida Nelson RN) Gen Hx Hemophilia/Blood Disorder: No (10/08/2016 18:54:Adelaida Nelson RN) Gen Hx Muscular Dystrophy: No (10/08/2016 18:54:Adelaida Nelson RN) Gen Hx Cystic Fibrosis: No (10/08/2016 18:54:Adelaida Nelson RN) Gen Hx [place] Chorea: No (10/08/2016 18:54:Adelaida Nelson RN) Gen Hx Mental Retardation/Autism: No (10/08/2016 18:54:Adelaida Nelson RN) Gen Hx Tested for Fragile X: No (10/08/2016 18:54:Adelaida Nelson RN) Gen Hx Other Inher/Chromosomal: No (10/08/2016 18:54:Adelaida Nelson RN) Gen Hx Maternal Metabolic DO: No (10/08/2016 18:54:Adelaida Nelson RN) Gen Hx Pt Father or FOB Defect: No (10/08/2016 18:54:Adelaida Nelson RN) Gen Hx Other Genetic History: No (10/08/2016 18:54:Adelaida Nelson RN) Gen Hx Drugs/Meds since LMP: No (10/08/2016 18:54:Adelaida Nelson RN)
--- NOTE | 2016-10-14 06:01 | L&D General Admission ---
General Admit Datetime Report Generated by CPN: 10/14/2016 06:00 INFORMATION Patient Age: 21 (10/03/2016 09:05:QS system process) EDC: 10/23/2016 00:00 (10/08/2016 18:54:RAHEEM Torres) : 1 (10/08/2016 18:54:Adelaida Nelson RN) Para: 0 (10/08/2016 18:54:Adelaida Nelson RN) Term: 0 (10/08/2016 18:54:Adelaida Nelson RN) : 0 (10/08/2016 18:54:Adelaida Nelson RN) Spontaneous Abortions: 0 (10/08/2016 18:54:Adelaida Nelson RN) Induced Abortions: 0 (10/08/2016 18:54:Adelaida Nelson RN) Livin (10/08/2016 18:54:Adelaida Nelson RN) Cesareans: 0 (10/08/2016 18:54:Adelaida Nelson RN) VBACs: 0 (10/08/2016 18:54:Adelaida Nelson RN) Ectopic: 0 (10/08/2016 18:54:Adelaidajairon Nelson RN) Multiple Births: 0 (10/08/2016 18:54:Adelaida Nelson RN) Baby, Number in Womb: 1 (10/08/2016 18:54:Adelaida Nelson RN) CARE Primary Chute Tapper: [facility] (10/08/2016 18:54:Adelaida Nelson RN) Month of 1st Visit: 03/2016 (10/08/2016 18:54:Adelaida Nelson RN) Adequate Care: Yes (10/08/2016 18:54:Adelaida Nelson RN) Prepregnancy Weight (lb): 177 (10/08/2016 18:54:Adelaida Nelson RN) Prepregnancy Weight (kg): 80.5 (10/08/2016 18:54:QS system process) Height (in): 64 (10/11/2016 13:15:QS system process) ALLERGIES Medication Allergy: No (10/08/2016 18:54:Adelaida Nelson RN) Medication Allergies: No Known Allergies (10/09/2016) (10/09/2016 19:54:QS system process) Latex Allergy: No Latex Allergies (10/08/2016 18:54:Adelaida Nelson RN) Food Allergies: N/A (10/08/2016 18:54:Adelaida Nelson RN) Environmental Allergies: N/A (10/08/2016 18:54:Adelaida Nelson RN) COMMUNICATION Primary Language: Belizean (10/08/2016 18:54:Adelaida Nelson RN) Medical Tx Preferred Language: Belizean (10/08/2016 18:54:Adelaida Nelson RN) Communication Barrier(s): None (10/08/2016 18:54:Adelaida Nelson RN) DEMOGRAPHICS Address: [address] [place] [address] (10/03/2016 09:05:QS system process) Zipcode: [address] (10/03/2016 09:05:QS system process) Home (10/03/2016 09:05:QS system process) Work (10/08/2016 18:50:QS system process) SSN: [id number] (10/08/2016 18:50:QS system process) Next of Kin Name: NATALIE HANCOCK (10/03/2016 09:05:QS system process) Next of Kin (10/03/2016 09:05:QS system process) Next of Kin Relationship: MO (10/03/2016 09:05:QS system process) Date of : 1995 (10/03/2016 09:05:QS system process) Marital Status: Single (10/03/2016 09:05:QS system process) Sex: Female (10/03/2016 09:05:QS system process) Race: Other (10/03/2016 09:05:QS system process) Ethnicity: Non- or (10/03/2016 09:05:QS system process) Yarsani: None (10/03/2016 09:05:QS system process) DRUG AND ALCOHOL USE Alcohol: No (10/08/2016 18:54:Adelaida Nelson RN) Cigarettes: Never Smoker. [id number] (10/08/2016 18:54:Adelaida Nelson RN) Marijuana: No (10/08/2016 18:54:Adelaida Nelson RN) Cocaine: No (10/08/2016 18:54:Adelaida Nelson RN) Other Illicit Drugs: No (10/08/2016 18:54:Adelaida Nelson RN) VACCINE HISTORY Influenza Vaccine: No (10/08/2016 18:54:Adelaida Nelson RN) Pneumococcal Vaccine: No (10/08/2016 18:54:Adelaida Nelson RN) Tetanus Vaccine: Yes (10/08/2016 18:54:Adelaida Nelson RN) Tdap Vaccine: Yes (10/08/2016 18:54:Adelaida Nelson RN) Hepatitis B Vaccine: Yes (10/08/2016 18:54:Adelaida Nelson RN) Federal Mediation Commissioner: [facility] (10/08/2016 18:54:Adelaida Nelson RN) Feeding Preference: Breast (10/08/2016 18:54:Adelaida Nelson RN) Benefit of Breast Feed Discussed: Yes (10/08/2016 18:54:Adelaida Nelson RN) Circumcision: N/A (10/08/2016 18:54:Adelaida Nelson RN) Classes Attended: No (10/08/2016 18:54:Adelaida Nelson RN) Tubal Ligation: No (10/08/2016 18:54:Adelaida Nelson RN) Tubal Authorization Signed: N/A (10/08/2016 18:54:Adelaida Nelson RN) Consent: N/A (10/08/2016 18:54:Adelaida Nelson RN) Consent Signed: N/A (10/08/2016 18:54:Adelaida Nelson RN) Pain Management Plans: Natural (10/08/2016 18:54:Adelaida Nelson RN) Plans for Labor and Delivery: None (10/08/2016 18:54:Adelaida Nelson RN) Support Person: Natalie (10/08/2016 18:54:Adelaida Nelson RN) Support Person Relationship: Mother (10/08/2016 18:54:Adelaida Nelson RN) Cultural/Spritual Practice: No (10/08/2016 18:54:Adelaida Nelson RN) Spir/Cult Dietary Needs: No (10/08/2016 18:54:Adelaida Nelson RN) LIVING SITUATION/DISCHARGE PLAN Living Arrangements: House (10/08/2016 18:54:Adelaida Nelson RN) Adequate Access to:: Electric; Heat; Refrigeration; Plumbing/Running water; Phone; Transportation (10/08/2016 18:54:Adelaida Nelson RN) WIC Program: Yes (10/08/2016 18:54:Adelaida Nelson RN) Discharge Thermodynamics Professor Person: Mother (10/08/2016 18:54:Adelaida Nelson RN) Person to Help after Discharge: Mother (10/08/2016 18:54:Adelaida Nelson RN) Currently Using Commun Resources: Yes (10/08/2016 18:54:Adelaida Nelson RN) Specify Current Resource Used: Medicaid (10/08/2016 18:54:Adelaida Nelson RN) Outside Agency/Windows System Admin: No (10/08/2016 18:54:Adelaida Nelson RN) Car Seat for Discharge: Yes (10/08/2016 18:54:Adelaida Nelson RN) Adoption Requested: No (10/08/2016 18:54:Adelaida Nelson RN) Pt Contact w/infant Post : N/A (10/08/2016 18:54:Adelaida Nelson RN) LABS Blood Type: A Positive (10/08/2016 18:54:Adelaida Nelson RN) Antibody Screen: Negative (10/08/2016 18:54:Adelaida Nelson RN) Rho(G) this : Not Applicable (10/08/2016 18:54:Adelaida Nelson RN) Hemoglobin: 8.9 L (10/11/2016 07:27:QS system process) Hematocrit: 27.4 L (10/11/2016 07:27:QS system process) MCV: 80 (10/11/2016 07:27:QS system process) Group Beta Strep: Positive (10/08/2016 18:54:Adelaida Nelson RN) Gonorrhea: Negative (10/08/2016 18:54:Adelaida Nelson RN) Chlamydia: Negative (10/08/2016 18:54:Adelaida Nelson RN) RPR/VDRL: Nonreactive (10/08/2016 18:54:Adelaida Nelson RN) HIV Exposure Test: Negative (10/08/2016 18:54:Adelaida Nelson RN) Hepatitis B: Negative (10/08/2016 18:54:Adelaida Nelson RN) Rubella: Immune (10/08/2016 18:54:Adelaida Nelson RN) OB/PREVIOUS HISTORY History of Previous : No (10/08/2016 18:54:Adelaida Nelson RN) History of Gestational Diabetes: No (10/08/2016 18:54:Adelaida Nelson RN) History of PIH: No (10/08/2016 18:54:Adelaida Nelson RN) History of Incompetent Cervix: No (10/08/2016 18:54:Adelaida Nelson RN) History of Placenta Previa/Abrup: No (10/08/2016 18:54:Adelaida Nelson RN) History of Macrosomia: No (10/08/2016 18:54:Adelaida Nelson RN) History of IUGR: No (10/08/2016 18:54:Adelaida Nelson RN) History of Hemorrhage: No (10/08/2016 18:54:Adelaida Nelson RN) History of Loss/Stillborn: No (10/08/2016 18:54:Adelaida Nelson RN) History of : No (10/08/2016 18:54:Adelaida Nelson RN) History of D (Rh) Sensitization: No (10/08/2016 18:54:Adelaida Nelson RN) History Recurrent Loss/Stillborn: No (10/08/2016 18:54:Adelaida Nelson RN) History Depression/PP Depression: No (10/08/2016 18:54:Adelaida Nelson RN) History of Uterine Anomaly/ELIZA: No (10/08/2016 18:54:Adelaida Nelson RN) History of Infertility: No (10/08/2016 18:54:Adelaida Nelson RN) History of ART Treatment: No (10/08/2016 18:54:Adelaida Nelson RN) History of ELIZA: No (10/08/2016 18:54:Adelaida Nelson RN) MEDICAL HISTORY Med Hx Diabetes: No (10/08/2016 18:54:Adelaida Nelson RN) Med Hx Hypertension: No (10/08/2016 18:54:Adelaida Nelson RN) Med Hx Heart Disease: No (10/08/2016 18:54:Adelaida Nelson RN) Med Hx Autoimmune Disorder: No (10/08/2016 18:54:Adelaida Nelson RN) Med Hx Kidney Disease/UTI: No (10/08/2016 18:54:Adelaida Nelson RN) Med Hx Neurologic/Epilepsy: No (10/08/2016 18:54:Adelaida Nelson RN) Med Hx Psychiatric Disorders: No (10/08/2016 18:54:Adelaida Nelson RN) Med Hx Hepatitis/Liver Disease: No (10/08/2016 18:54:Adelaida Nelson RN) Med Hx Varicosities/Phlebitis: No (10/08/2016 18:54:Adelaida Nelson RN) Med Hx Thyroid Dysfunction: No (10/08/2016 18:54:Adelaida Nelson RN) Med Hx Trauma/Violence: No (10/08/2016 18:54:Adelaida Nelson RN) Med Hx Blood Transfusion: No (10/08/2016 18:54:Adelaida Nelson RN) Med Hx Pulmonary (Asthma,TB): No (10/08/2016 18:54:Adelaida Nelson RN) Med Hx Breast: No (10/08/2016 18:54:Adelaida Nelson RN) Med Hx PRODUCT ASSURANCE ENGINEER Surgery: No (10/08/2016 18:54:Adelaida Nelson RN) Med Hx Hospitalization/Surgery: No (10/08/2016 18:54:Adelaida Nelson RN) Med Hx Anesthetic Complications: No (10/08/2016 18:54:Adelaida Nelson RN) Med Hx Abnormal Pap Smear: No (10/08/2016 18:54:Adelaida Nelson RN) Other Medical Diseases: No (10/08/2016 18:54:Adelaida Nelson RN) Med Hx Significant Family Hx: No (10/08/2016 18:54:Adelaida Nelson RN) INFECTIOUS HISTORY Inf Hx Gonorrhea: No (10/08/2016 18:54:Adelaida Nelson RN) Inf Hx Chlamydia: No (10/08/2016 18:54:Adelaida Nelson RN) Inf Hx Syphilis: No (10/08/2016 18:54:Adelaida Nelson RN) Inf Hx HIV/AIDS: No (10/08/2016 18:54:Adelaida Nelson RN) Inf Hx Human Papilloma Virus: No (10/08/2016 18:54:Adelaida Nelson RN) Inf Hx Pt/Partner Genital Herpes: No (10/08/2016 18:54:Adelaida Nelson RN) Inf Hx Tuberculosis/Exposure: No (10/08/2016 18:54:Adelaida Nelson RN) Inf Hx Hepatitis B,C: No (10/08/2016 18:54:Adelaida Nelson RN) Inf Hx Rash or Viral Illness: No (10/08/2016 18:54:Adelaida Nelson RN) GENETIC HISTORY Gen Hx Age >=35 at YVETTE: No (10/08/2016 18:54:Adelaida Nelson RN) Gen Hx Thalassemia: No (10/08/2016 18:54:Adelaida Nelson RN) Gen Hx Congenital Heart Defect: No (10/08/2016 18:54:Adelaida Nelson RN) Gen Hx Neural Tube Defect: No (10/08/2016 18:54:Adelaida Nelson RN) Gen Hx Down's Syndrome: No (10/08/2016 18:54:Adelaida Nelson RN) Gen Hx Kevin-Sachs: No (10/08/2016 18:54:Adelaida Nelson RN) Gen Hx Valorie: No (10/08/2016 18:54:Adelaida Nelson RN) Gen Hx Familial Dysautonomia: No (10/08/2016 18:54:Adelaida Nelson RN) Gen Hx Sickle Cell Disease/Trait: No (10/08/2016 18:54:Adelaida Nelson RN) Gen Hx Hemophilia/Blood Disorder: No (10/08/2016 18:54:Adelaida Nelson RN) Gen Hx Muscular Dystrophy: No (10/08/2016 18:54:Adelaida Nelson RN) Gen Hx Cystic Fibrosis: No (10/08/2016 18:54:Adelaida Nelson RN) Gen Hx [place] Chorea: No (10/08/2016 18:54:Adelaida Nelson RN) Gen Hx Mental Retardation/Autism: No (10/08/2016 18:54:Adelaida Nelson RN) Gen Hx Tested for Fragile X: No (10/08/2016 18:54:Adelaida Nelson RN) Gen Hx Other Inher/Chromosomal: No (10/08/2016 18:54:Adelaida Nelson RN) Gen Hx Maternal Metabolic DO: No (10/08/2016 18:54:Adelaida Nelson RN) Gen Hx Pt Father or FOB Defect: No (10/08/2016 18:54:Adelaida Nelson RN) Gen Hx Other Genetic History: No (10/08/2016 18:54:Adelaida Nelson RN) Gen Hx Drugs/Meds since LMP: No (10/08/2016 18:54:Adelaida Nelson RN)
== END 2016-10-11 18:00 | disposition home or self-care (01) | DRG 775 ==
LOC: LC 19:38 → LR 20:12 → 2S 10-10 04:11 → UNDODISIN 10-11 13:05
PROVIDERS: ADMIT Obstetrics & Gynecology; ATTEND Obstetrics & Gynecology
PROC: 4A1HXCZ Monitoring of Products of Conception, Cardiac Rate, External Approach (ICD-10-PCS; 2016-10-09)
PROC: 10E0XZZ Delivery of Products of Conception, External Approach (ICD-10-PCS; principal; 2016-10-10)
PROC: 0HQ9XZZ Repair Perineum Skin, External Approach (ICD-10-PCS; 2016-10-10)
DX: O70.0 First degree perineal laceration during delivery (principal); D62 Acute posthemorrhagic anemia; O99.824 Streptococcus B carrier state complicating childbirth; O99.02 Anemia complicating childbirth; Z3A.38 38 weeks gestation of pregnancy; Z37.0 Single live birth
CPT/HCPCS: 36415; 80307; 81005; 85025; 85027; 86592; 86850; 86900; 86901; 88307; J2300; J2405; J2540; J2550; J2590; J3490; S0119

== ENCOUNTER 2017-04-08 02:12 | Emergency (ER) | payer MEDICAID ==
[2017-04-08 02:26] VITALS: BP 140/93
--- NOTE | 2017-04-08 10:48 | EKG REPORT ---
SEVERITY:- NORMAL ECG - SINUS RHYTHM : Confirmed by: Shadi Pedraza 08-Apr-2017 10:47:53
== END 2017-04-08 02:30 | disposition left against medical advice (07) ==
LOC: ER 02:12
DX: Z53.21 Procedure and treatment not carried out due to patient leaving prior to being seen by health care provider (principal)
CPT/HCPCS: 93005; 93010

== ENCOUNTER 2019-10-02 10:08 | Outpatient (CLI) | payer MEDICAID ==
[2019-10-02 10:43] LABS: BACTERIA (WET MOUNT) 4+ BACTERIA SEEN; EPITHELIALS (WET MOUNT) 4+ EPITHELIALS SEEN; RBCS (WET MOUNT) FEW RBCS SEEN; T.VAGINALIS (WET MOUNT) NO TRICHOMONAS SEEN; WBCS (WET MOUNT) 4+ WBCS SEEN; YEAST (WET MOUNT) NO YEAST SEEN
[2019-10-02 10:53] LABS: AMORPHOUS SEDIMENT,URINE TRACE /HPF; APPEARANCE,URINE CLOUDY; BILIRUBIN,URINE NEGATIVE (NEGATIVE); COLOR,URINE AMBER; GLUCOSE, URINE NEGATIVE (NEGATIVE); KETONES,URINE NEGATIVE (NEGATIVE); LEUKOCYTE ESTERASE,URINE LARGE (NEGATIVE); NITRITE,URINE NEGATIVE (NEGATIVE); PROTEIN,URINE 30 mg/dL (NEGATIVE); URINE SPECIFIC GRAVITY 1.027; UROBILINOGEN,URINE NEGATIVE mg/dL (<2.0)
[2019-10-02 11:14] LABS: URINE AMPHETAMINES SCREEN NEGATIVE; URINE BARBITURATES SCREEN NEGATIVE; URINE BENZODIAZEPINES SCREEN NEGATIVE; URINE COCAINE SCREEN NEGATIVE; URINE MARIJUANA (THC) SCREEN NEGATIVE; URINE METHADONE SCREEN NEGATIVE; URINE PHENCYCLIDINE SCREEN NEGATIVE
[2019-10-02 12:12] LABS: CHLAM PCR NOT DETECTED (NOT DETECT)
== END 2019-10-02 11:29 | disposition home or self-care (01) ==
LOC: LC 10:08
PROVIDERS: ATTEND Obstetrics & Gynecology
PROC: 4A1HXCZ Monitoring of Products of Conception, Cardiac Rate, External Approach (ICD-10-PCS; principal; 2019-10-02)
DX: O47.02 False labor before 37 completed weeks of gestation, second trimester (principal); O99.282 Endocrine, nutritional and metabolic diseases complicating pregnancy, second trimester; E86.0 Dehydration; N89.8 Other specified noninflammatory disorders of vagina; Z3A.25 25 weeks gestation of pregnancy
CPT/HCPCS: 80307; 81001; 87086; 87210; 87491; 87591

== ENCOUNTER → 2020-01-17 | Outpatient (CLI) | payer MEDICAID ==
--- NOTE | 2020-01-17 09:35 | ER RDC ASSESSMENT REPORT ---
Intake - In the Last 14 days Have you traveled outside [place]?: No Have you been in close contact with someone CONFIRMED: No Worked in Healthcare?: No - Symptoms Subjective Fever([place] feverish): Yes Chills: Yes Muscule Aches: Yes Runny Nose: No Sore Throat: No Cough (New or worsening chronic cough): No Shortness of breath: No Nausea or Vomiting: Yes Headache: Yes Abdominal Pain: Yes Diarrhea(3 or more loose stools in last 24 hours): Yes - Do you have any of the following Chronic lung disease: Asthma or emphysema or COPD: No Cystic Fibrosis: No Diabetes: No High Blood Pressure: No Cardiovascular Disease: No Chronic Kidney Disease: No Chronic Liver Disease: No Chronic blood disorder like Sickle Cell Disease: No Weak immune system due to disease or medication: No Neurologic condition that limits movement: No Developmental delay - Moderate to Severe: No Recent (within past 2 weeks) or current : Yes --If current: Trimester: 3rd Comment: Patient is 40 weeks and 5 days Morbid Obesity (>100 pounds over ideal weight): No Obesity Comment: 5 feet 5 inches in height weight 205 pounds - Objective Temperature: 96.9 F Pulse Rate: 81 Respiratory Rate: 20 Blood Pressure: 122/72 O2 Sat by Pulse Oximetry: 97 Objective: Given above, testing performed: If Testing Performed: Test Specimen Type Sent to General - General Information source: Patient Notes: Patient here today at [facility] for COVID testing. Patient started feeling sick on January 12 with fever chills body aches nausea headache abdominal pain diarrhea. Patient is 40 weeks and 5 days spoke with OB and recommended having Maria Dolores testing performed patient has not had any recent exposure to anybody known positive. Denies cough runny nose or sore throat. - Related Data Allergies/Adverse Reactions: No Known Allergies Allergy (Verified 10/09/16 19:54) Past Medical History - General Information source: Patient - Social History Smoking Status: Never Smoker Family History: Reviewed & Not Pertinent Neurological Medical History: Reports: Hx Migraine Renal/ Medical History: Denies: Hx Peritoneal Dialysis Physical Exam - General General appearance: Appears well, Alert In distress: None Notes: PHYSICAL EXAMINATION: GENERAL: Well-appearing and in no acute distress. HEAD: Atraumatic, normocephalic. EYES: sclera anicteric, conjunctiva are normal. ENT: nares patent. Moist mucous membranes. NECK: Normal range of motion, supple without lymphadenopathy LUNGS: CTAB and equal. No wheezes rales or rhonchi. Resp even and unlabored. Lung sounds clear. HEART: Regular rate and rhythm without murmurs ABDOMEN: Soft, nontender, normal bowel sounds, no guarding. EXTREMITIES: No cyanosis. NEUROLOGICAL: Normal speech. PSYCH: Normal mood, normal affect. SKIN: Warm, Dry, normal turgor, Diagnostic Results Laboratory Results: Patient informed of negative rapid strep and negative rapid flu results. pending strep culture pending COVID testing results. Patient provided instructions regarding COVID to include: As a person under investigation for Covid 19, the [place] department of Health and Human Services, division of public health advises you to adhere to the following guidance until your test results are reported to you. If your test result is positive, you will receive additional information from your provider and your local health department at that time. Remain at home until you are cleared by the health provider or public health authorities. Keep a log of visitors to your home, notify any visitors to your home of your isolation status. If you plan to move to a new address or leave the county, notify the local health department in your County. Call your doctor or seek care if you have an urgent medical need. Before seeking medical care, call ahead to get instructions from the provider before arriving at the medical office clinic or hospital. Notify them that you are being tested for the virus that causes Covid 19 so that arrangements can be made, as necessary, to prevent transmission to others in the healthcare setting. Next, notify the local health department in your county. If a medical emergency arises and you need to call 911, inform the first responders that you are being tested for the virus that causes Covid 19. Next, notify the local health department in your county. Patient Education/Counseling Counseling/Education: Patient presents with upper respiratory symptoms worrisome for possible Covid 19. Patient does not have emergency worring symptoms such as difficulty breathing, shortness of breath, chest pain, pressure, confusion or cyanosis. Patient appears suitable for discharge. Patient to follow up with DEPORTATION EXAMINER provider today. TO ED for persistent or worsening symptoms. Patient's vital signs are stable and patient is nontoxic in appearance. Good return precautions have been discussed with patient, patient verbalized understanding and is agreeable with discharge plan of care at this time. RDC Discharge - Discharge Clinical Impression: COVID - 19 SCREENING Condition: Stable Disposition: Home; Selfcare
[2020-01-17 09:36] VITALS: BP 122/72
[2020-01-17 11:30] LABS: A TYPE INFLUENZA AG NEGATIVE (NEGATIVE); B INFLUENZA AG NEGATIVE (NEGATIVE)
== END ==
LOC: RDC 09:06
PROVIDERS: ATTEND Nurse Practitioner Family
DX: Z20.828 Contact with and (suspected) exposure to other viral communicable diseases (principal)
CPT/HCPCS: 87070; 87635; 87804; 87880; 99211

== ENCOUNTER 2020-01-18 20:21 | Inpatient (IN) | payer MEDICAID ==
[2020-01-18 22:31] LABS: APPEARANCE,URINE SLIGHTLY-CLOUDY; BILIRUBIN,URINE NEGATIVE (NEGATIVE); COLOR,URINE YELLOW; GLUCOSE, URINE NEGATIVE (NEGATIVE); KETONES,URINE 20 mg/dL (NEGATIVE); LEUKOCYTE ESTERASE,URINE LARGE (NEGATIVE); NITRITE,URINE NEGATIVE (NEGATIVE); PROTEIN,URINE 30 mg/dL (NEGATIVE); URINE SPECIFIC GRAVITY 1.009; UROBILINOGEN,URINE NEGATIVE mg/dL (<2.0)
[2020-01-18 22:49] LABS: URINE AMPHETAMINES SCREEN NEGATIVE; URINE BARBITURATES SCREEN NEGATIVE; URINE BENZODIAZEPINES SCREEN NEGATIVE; URINE COCAINE SCREEN NEGATIVE; URINE MARIJUANA (THC) SCREEN NEGATIVE; URINE METHADONE SCREEN NEGATIVE; URINE PHENCYCLIDINE SCREEN NEGATIVE
[2020-01-19] MEDS ORDERED: RINGERS SOLUTION,LACTATED 1,000 ML IV PRN ×2 (01:06→17:08)
[2020-01-19] MEDS ORDERED: OXYTOCIN/0.9 % SODIUM CHLORIDE 30 UNIT/500 ML RTUINJ IV PRN ×3 (01:09→17:08)
[2020-01-19] MEDS ORDERED: ONDANSETRON HCL INJ/PF 4 MG/2 ML SDV IV PRN (01:10)
--- NOTE | 2020-01-19 01:14 | Admission Physical ---
Datetime Report Generated by CPN: 01/19/2020 01:14 CURRENT ADMISSION Chief Complaint: Uterine Contractions Indication for Induction- Other: Intermittent late decels, post term Admit Impression : Term, Intrauterine ; No Active Labor Admit Plan: Admit to Unit; Initiate Labor Induction Protocol ALLERGIES Medication Allergies: No Medication Allergies: No Known Allergies (01/18/2020) Latex: No Latex Allergies OBSTETRICAL HISTORY EDC: 01/12/2020 00:00 : 2 Para: 1 Term: 1 : 0 SAB: 0 IAB: 0 Ectopic: 0 Livin Cesareans: 0 VBACs: 0 Multiple Births: 0 Gestational Diabetes: No Rh Sensitization: No Incompetent Cervix: No ELIZA: No Infertility: No ART Treatment: No Uterine Anomaly: No IUGR: No Hx Previous C/S: No Macrosomia: No Hx Loss/Stillborn: No PIH: No Hx : No Placenta Previa/Abruption: No Depression/PP Depression: No PTL/PROM: No Post Hemorrhage: No Current Procedures: Ultrasound; NST Obstetrical History Comments: G1: G2: current SEE RECORDS Alcohol: No Marijuana : No Cocaine: No Other Illicit Drugs: No Cigarettes: Never Smoker. [id number] MEDICAL HISTORY Diabetes: No Blood Transfusion: No Pulmonary Disease (Asthma, TB): No Breast Disease: No Hypertension: No Unit Controller Surgery: No Heart Disease: No Hosp/Surgery: Yes Autoimmune Disorder: No Anesthetic Complications: No Kidney Disease: No Abnormal Pap Smear: No Neuro/Epilepsy: No Psychiatric Disorders: No Other Medical Diseases: No Hepatitis/Liver Disease: No Significant Family History: No Varicosities/Phlebitis: No Trauma/Violence : No Thyroid Dysfunction: No INFECTIOUS HISTORY Gonorrhea: No Genital Herpes: No Chlamydia: No Tuberculosis: No Syphilis: No Hepatitis: No HIV/AIDS Exposure: No Rash or Viral Illness: No HPV: No PHYSICAL EXAM General: Normal HEENT: Normal Neurologic: Normal Thyroid: Deferred Heart: Normal Lungs: Normal Breast: Deferred Back: Normal Abdomen: Normal Genitourinary Exam: Normal Extremities: Normal DTRs: Normal Pelvic Type: Adequate Vital Signs: Reviewed VAGINAL EXAM Dilatation: 3 Effacement: 25 Station: -3 Contraction Comments: q 4-7 MEMBRANES Membranes: Intact FETUS A EGA: 41.0 Monitoring: External US FHR- Baseline: 145 Variability: Moderate 6-25bpm Accelerations: 15X15 Decelerations: Late; Variable FHR Category: Category I Presentation: Vertex Admit Comment: 24yo at 41+0ega presents for irregular ctx. COVID testing not back. Rapid done and negative. EFW appro 8#2oz. Will admit obtain labs and begin low dose pitocin. GBS negative. Admit to labor and delivery and IOL with pitocin. ANticipate PLANS FOR LABOR AND DELIVERY Labor and Delivery: None Pain Management: Natural Feeding Preference: Formula Benefit of Breast Feed Discussed: Yes Circumcision: Yes INFORMED CONSENT Informed Consent Obtained: Vaginal Delivery; Induction of Labor; Risks, Benefits and Alternatives Discussed Signature: with User ID: [email or web address]
[2020-01-19] MEDS ORDERED: OXYTOCIN 10 UNIT/ML VIAL ONE ×2 (01:24→17:18)
[2020-01-19] MEDS ORDERED: MISOPROSTOL 0.2 MG TABLET ONE (01:24)
[2020-01-19] MEDS ORDERED: OXYTOCIN/0.9 % SODIUM CHLORIDE 30 UNIT/500 ML RTUINJ ONE ×3 (01:24→19:27)
[2020-01-19] MEDS ORDERED: LIDOCAINE 1% INJ-PF (10 MG/ML) 30 ML SDV ONE (01:24)
[2020-01-19] MEDS ORDERED: RINGERS SOLUTION,LACTATED 1,000 ML IV ONE (01:30)
[2020-01-19 01:36] LABS: ABSOLUTE LYMPHOCYTES (AUTO) 1.1 10^3/uL (0.5-4.7); ABSOLUTE MONOCYTES (AUTO) 0.6 10^3/uL (0.1-1.4); ABSOLUTE NEUT (AUTO) 5.7 10^3/uL (1.7-8.2); BASOPHILS % (AUTO) 0.4 % (0-2); HEMATOCRIT 32.9 % (36.0-47.0); HEMOGLOBIN 11.2 g/dL (12.0-15.5); LYMPHOCYTES % (AUTO) 14.5 % (13-45); MEAN CORPUSCULAR HEMOGLOBIN 26.2 pg (27.0-33.4); MEAN CORPUSCULAR HGB CONC 34.2 g/dL (32.0-36.0); MEAN CORPUSCULAR VOLUME 77 fl (80-97); MONOCYTES % (AUTO) 8.4 % (3-13); PLATELET COUNT 118 10^3/uL (150-450); RED BLOOD COUNT 4.29 10^6/uL (3.72-5.28); SEGMENTED NEUTROPHILS % (AUTO) 76.7 % (42-78); TOTAL CELLS COUNTED % (AUTO) 100 %; WHITE BLOOD COUNT 7.4 10^3/uL (4.0-10.5)
[2020-01-19] MEDS ORDERED: EPHEDRINE SULFATE INJ 50 MG/1 ML AMPULE ONE (07:15)
[2020-01-19] MEDS ORDERED: FENTANYL/BUPIVACAINE/NS/PF 300 MCG/150 ML RTUINJ EPI ONE (07:15)
[2020-01-19] MEDS ORDERED: BUPIVACAINE HCL 0.25 % INJ/PF (2.5 MG/1 ML) 30 ML VIAL ONE ×3 (07:16→18:47)
[2020-01-19] MEDS ORDERED: ROPIVACAINE HCL 0.5% INJ/PF (5 MG/1 ML) 30 ML SDV ONE (16:47)
[2020-01-19] MEDS ORDERED: CITRIC ACID/SODIUM CITRATE ORAL SOLN 15 ML UDCUP ONE (17:01)
[2020-01-19] MEDS ORDERED: CEFAZOLIN 1 GM/D5W RTU 2 GM/100 ML RTUPB IV ONE (17:01)
[2020-01-19] MEDS ORDERED: SIMETHICONE 80 MG TAB.CHEW PO PRN (17:08)
[2020-01-19] MEDS ORDERED: MEASLES,MUMPS&RUBELLA VACC/PF 0.5 ML VIAL SUBCUT PRN (17:08)
[2020-01-19] MEDS ORDERED: ACETAMINOPHEN 325 MG TABLET PO PRN (17:08)
[2020-01-19] MEDS ORDERED: DIPH/PERTUSS(ACELL)/TETANUS VAC/PF 0.5 ML SYR (>=10YO) IM PRN (17:08)
[2020-01-19] MEDS ORDERED: HYDROMORPHONE HCL INJ/PF 2 MG/ML AMPULE IV PRN (17:08)
[2020-01-19] MEDS ORDERED: OXYCODONE-ACETAMINOPHEN 5-325 MG TABLET PO PRN (17:08)
[2020-01-19] MEDS ORDERED: PROMETHAZINE HCL INJ 25 MG/1 ML VIAL IV PRN (17:08)
[2020-01-19] MEDS ORDERED: ACETAMINOPHEN 1,000 MG/100 ML RTUPB IV PRN (17:08)
[2020-01-19] MEDS ORDERED: KETOROLAC TROMETHAMINE INJ/PF 30 MG/1 ML SDV ONE (17:18)
[2020-01-19] MEDS ORDERED: DIPHENHYDRAMINE HCL 50 MG/ML VIAL ONE (17:18)
[2020-01-19] MEDS ORDERED: PHENYLEPHRINE HCL INJ/PF 10 MG/1 ML SDV ONE (17:18)
[2020-01-19] MEDS ORDERED: MIDAZOLAM 2 MG/2 ML INJ ONE (17:19)
[2020-01-19] MEDS ORDERED: FENTANYL CITRATE INJ/PF 100 MCG/2 ML AMPUL ONE ×2 (17:19→20:25)
[2020-01-19] MEDS ORDERED: ONDANSETRON HCL INJ/PF 4 MG/2 ML SDV ONE (17:19)
[2020-01-19] MEDS ORDERED: ACETAMINOPHEN 0 MG/0 ML RTUPB IV ONE (17:19)
--- NOTE | 2020-01-19 18:44 | Operative Report ---
Operative Report DATE OF SURGERY: 01/19/20 PREOPERATIVE DIAGNOSIS: Arrest of dilatation OPERATION: Primary via low transverse uterine incision SURGEON: DARION NEELY ANESTHESIA: Spinal TISSUE REMOVED OR ALTERED: Placenta COMPLICATIONS: None ESTIMATED BLOOD LOSS: 250 cc INTRAOPERATIVE FINDINGS: Viable baby crying at delivery. Normal uterus tubes and ovaries. PROCEDURE: Patient was taken to the OR and placed in supine position after her spinal anesthesia. She is prepared and draped in sterile fashion. Ramirez was placed for drainage of the bladder. Low transverse incision was made and carried down the level of the fascia. The fascial incision was made with knife and extended bilaterally with curved Youngblood scissors. The fascia was off the rectus muscles using sharp and blunt dissection. The rectus muscles are in the midline. The peritoneum was entered without incident. Bladder blade was placed in uterine segment was identified. A low transverse incision was made creating a bladder flap. Bladder blade was placed low transverse uterine incision was made with the knife and extended with fingertips. The baby was delivered with some fundal pressure. Mouth and nose were suctioned free. The cord is doubly clamped and cut. Baby is passed off to the [facility] in [facility]. The placenta was manually extracted with trailing membranes. The uterus was externalized wrapped in a moist lap sponge. Uterine contents wiped free. Uterus was closed with a running locking layer of 0 chromic suture using the second layer to imbricate the first completing a double layer closure of the uterus. The serosa was closed with a running 2-0 chromic stitch. The pelvis was irrigated and suctioned free of fluid the uterus was replaced in the abdomen. The abdominal wall peritoneum was closed with running 2-0 chromic stitch. Fascia was closed with a running 0 Vicryl in 2 segments. Nicole's layer was brought together with 0 plain gut stitch and the skin was closed with running subcuticular 4-0 undyed Vicryl stitch. The wound was dressed mother and baby did well.
--- NOTE | 2020-01-19 19:06 | Delivery Summary ---
Del Sum A-C Datetime Report Generated by CPN: 01/19/2020 19:05 DELIVERY PERSONNEL DELIVERY PERSONNEL: [id number] Delivery Doctor:: Cedric Goins MD PATTERN DATA OPERATOR:: Matt Normile, PATTERN DATA OPERATOR Churn Operator Margarine:: Qing Ramos RN Evaporator:: Dr. Rodolfo Fernandez Nurse Nurse:: Georgie Blum RN Verify Rep/RADIOACTIVE WASTE DISPOSAL DISPATCHER: [facility] Mate[facility] Verify Rep/RADIOACTIVE WASTE DISPOSAL DISPATCHER: Bhavna Araujo, DENTAL SECRETARY MATERNAL INFORMATION Delivery Anesthesia: Epidural; Spinal Medications After Delivery: Pitocin 30 Units in 500ml NS/D5W Delivery QBL: 315 Maternal Complications: None LABOR SUMMARY EDC: 01/12/2020 00:00 No. Babies in Womb: 1 Attempted: No Labor Anesthesia: Epidural and Spinal LABOR INFORMATION Reason for Induction: Not Applicable Oxytocin: Augmentation Group B Beta Strep: Negative Antibiotics # of Doses: N/A Antibiotics Time of Last Dose: N/A Name of Antibiotic Given: N/A Steroids Given: None Reason Steroids Not Administered: Not Applicable MEMBRANES Membranes Rupture Method: Artificial Rupture of Membranes: 01/19/2020 09:06 Length of Rupture (hr): 8.95 Amniotic Fluid Color: Particulate Meconium Amniotic Fluid Amount: Large Amniotic Fluid Odor: None STAGES OF LABOR Stage 3 hr: 0 Stage 3 min: 2 VAGINAL DELIVERY Episiotomy: None Laceration #1: None Laceration Repair: Not Applicable Sponge Count Correct: N/A Sharps Count Correct: N/A CSECTION DELIVERY Primary Indication: Failure of Descent Secondary Indication: N/A CSection Urgency: Non-Scheduled CSection Incidence: Primary Labor: Labor Elective: Nonelective CSection Incision: Lower Uterine Transverse BABY A INFORMATION Infant Delivery Date/Time: 01/19/2020 18:03 Method of Delivery: Born in Route : No : N/A Forceps: N/A Vacuum Extraction: N/A Shoulder Dystocia : No PRESENTATION/POSITION BABY A Presentation: Cephalic Cephalic Presentation: N/A Vertex Position: N/A Breech Presentation: N/A PLACENTA INFORMATION BABY A Placenta Delivery Time : 01/19/2020 18:05 Placenta Method of Delivery: Manual Removal Placenta Status: Delivered SCORES BABY A Heart Rate 1 min: >100 bpm Resp Effort 1 min: Good Cry Reflex Irritability 1 min: Cough or Sneeze or Pulls Away Muscle Tone 1 min: Some Flexion of Extremities Color 1 min: Body [place], Extremities Blue SCORE 1 MIN: 8 Heart Rate 5 min: >100 bpm Resp Effort 5 min: Good Cry Reflex Irritability 5 min: Cough or Sneeze or Pulls Away Muscle Tone 5 min: Some Flexion of Extremities Color 5 min: Body [place], Extremities Blue SCORE 5 MIN: 8 INFORMATION BABY A Gestational Age at Delivery: 41.0 Gestational Status: Late Term- 41- 41.6 Weeks Outcome : Liveborn Infant Condition : Stable Infant Sex: Male IDENTIFICATION BABY A Infant Verification Date/Time: 01/19/2020 18:03 ID Band Number: [id number] Mother's Name Verified: Yes Infant RN Verifying Infant: [place] [facility] Additional Verifying Personnel: Audelia Yu RN WEIGHT/LENGTH BABY A Birthweight (gm): 3650 Infant Weight (lb): 8 Weight (oz): 1 Length (in): 21.25 Length (cm): 53.98 CORD INFORMATION BABY A No. Cord Vessels: 3 Nuchal Cord : Around Neck x1, Loose Cord Blood Taken: Yes-For Storage (Mom's Blood type +) Infant Suction: Mouth; Nose ASSESSMENT BABY A Skin to Skin: No Skin to Skin Time (min): 0 Infant Care By: Grace Gómezer, RN Transferred To: [facility] BABY B INFORMATION : N/A
[2020-01-19] MEDS ORDERED: OXYCODONE-ACETAMINOPHEN 5-325 MG TABLET ONE (19:43)
[2020-01-19] MEDS: OXYCODONE-ACETAMINOPHEN 5-325 MG TABLET PO PRN (19:45)
[2020-01-20] MEDS: KETOROLAC TROMETHAMINE INJ/PF 30 MG/1 ML SDV IV SCH ×2 (03:45→07:54)
[2020-01-20 07:09] LABS: HEMATOCRIT 27.3 % (36.0-47.0); HEMOGLOBIN 9.2 g/dL (12.0-15.5); MEAN CORPUSCULAR HGB CONC 33.6 g/dL (32.0-36.0); MEAN CORPUSCULAR VOLUME 78 fl (80-97); PLATELET COUNT 111 10^3/uL (150-450); RED BLOOD COUNT 3.52 10^6/uL (3.72-5.28); RED CELL DISTRIBUTION WIDTH 16.1 % (11.5-14.0); WHITE BLOOD COUNT 9.3 10^3/uL (4.0-10.5)
[2020-01-20] MEDS: DOCUSATE SODIUM 100 MG CAPSULE PO SCH ×3 (07:55→18:07)
--- NOTE | 2020-01-20 10:34 | PDOC PROGRESS REPORT ---
Subjective-OB Progress Note for:: 01/20/20 - POD #1, Primary for FTP. A+, Rubella Immune, bottlefeeding Physical Exam (OB) Vital Signs: Temp Pulse Resp BP Pulse Ox 97.6 F 61 16 123/79 100 01/20/20 07:27 01/20/20 07:27 01/20/20 07:27 01/20/20 07:27 01/20/20 07:27 Intake & Output 01/19/20 01/20/20 01/21/20 06:59 06:59 06:59 Intake Total 700 Output Total 600 Balance 100 Weight 93.3 kg - General General Appearance: Appears well, Alert In distress: None - PIH/Pre-Eclampsia DTR's: 1 + Clonus: Negative Headache: Absent Epigastric Pain: No Visual Changes: No - Dressing Removed: No - opsite,dry/intact Incision: Well Approximated - Lochia Lochia Amount: Scant < 10 ml Lochia Color: Rubra/Red - Abdomen Description: Soft, Round Fundal Description: Firm, Midline Fundal Height: u/u - u/2 - Respiratory Respiratory Status: No respiratory distress Breath sounds: Clear - Cardiovascular Rhythm: Regular Heart Sounds: Normal auscultation - Abdominal Distension: No distension Tenderness: Nontender Abdominal Notes: +bs - Genitourinary Genitourinary Note: voiding - Extremities Upper extremity: Normal inspection Lower extremities: Normal inspection - Neurological Cognition: Normal Orientation: AAOx4 - Psychological Associated symptoms: Normal affect, Normal mood - Skin Skin Temperature: Warm Skin Moisture: Dry Objective-Diagnostic Laboratory: 01/20/20 06:45 01/20/20 06:45 WBC 9.3 RBC 3.52 L Hgb 9.2 L Hct 27.3 L MCV 78 L MCH 26.0 L MCHC 33.6 RDW 16.1 H Plt Count 111 L Assessment and Plan(PN) - Assessment and Plan (1) S/P primary low transverse Is this a current diagnosis for this admission?: Yes (2) Failure to progress in labor Is this a current diagnosis for this admission?: Yes (3) Anemia due to acute blood loss Is this a current diagnosis for this admission?: Yes - Time Spent with Patient Time with patient: Less than 15 minutes Medications reviewed and adjusted accordingly: Yes - Disposition Anticipated Discharge: Home Within: within 24 hours
[2020-01-20] MEDS: IBUPROFEN 800 MG TABLET PO SCH ×3 (11:32→18:07)
[2020-01-20] MEDS: PRENATAL VITAMIN W DHA CAPSULE PO SCH (11:47)
[2020-01-20] MEDS: FERROUS SULFATE 325 MG TABLET PO SCH (11:47)
[2020-01-20] MEDS ORDERED: KETOROLAC TROMETHAMINE INJ/PF 30 MG/1 ML SDV IV PRN (12:00)
[2020-01-20] MEDS ORDERED: KETOROLAC TROMETHAMINE INJ/PF 30 MG/1 ML SDV IV ONE (12:00)
[2020-01-20] MEDS: OXYCODONE-ACETAMINOPHEN 5-325 MG TABLET PO PRN (15:32)
[2020-01-21] MEDS: IBUPROFEN 800 MG TABLET PO SCH ×4 (00:04→17:23)
[2020-01-21] MEDS: OXYCODONE-ACETAMINOPHEN 5-325 MG TABLET PO PRN (01:10)
[2020-01-21] MEDS: FERROUS SULFATE 325 MG TABLET PO SCH (09:51)
[2020-01-21] MEDS: DOCUSATE SODIUM 100 MG CAPSULE PO SCH ×2 (09:52→17:23)
[2020-01-21] MEDS: PRENATAL VITAMIN W DHA CAPSULE PO SCH (09:52)
--- NOTE | 2020-01-21 10:36 | PDOC DISCHARGE SUMMARY ---
Impression - Admit/DC Date/PCP Admission Date/Primary Care Provider: 01/19/20 01:09 GUTIERREZ CARVALHO MD Discharge Date: 01/21/20 - POD #2, doing well, ready to go home today, A+, bottle feeding - Discharge Diagnosis (1) S/P primary low transverse Is this a current diagnosis for this admission?: Yes (2) Failure to progress in labor Is this a current diagnosis for this admission?: Yes (3) Anemia due to acute blood loss Is this a current diagnosis for this admission?: Yes - Additional Information Resuscitation Status: Full Code Discharge Diet: As Tolerated, Regular Discharge Activity: Activity As Tolerated, No Driving, No Lifting Over 10 Pounds, Pelvic Rest Referrals: GUTIERREZ CARVALHO MD [Primary Care Provider] - Prescriptions: Ferrous Sulfate [Feosol 325 mg Tablet] 325 mg PO DAILY 30 Days #30 tablet Ibuprofen [Motrin 800 mg Tablet] 800 mg PO Q6 #60 tablet Oxycodone HCl/Acetaminophen [Percocet 5-325 mg Tablet] 1 tab PO Q4HP PRN #30 tablet PRN Reason: Pain Scale Of 4 Home Medications: Vit/Iron Fum/Folic AC [ Tablet] 1 tab PO DAILY 10/08/16 Ferrous Sulfate [Feosol 325 mg Tablet] 325 mg PO DAILY 30 Days #30 tablet Ibuprofen [Motrin 800 mg Tablet] 800 mg PO Q6 #60 tablet 01/21/20 Oxycodone HCl/Acetaminophen [Percocet 5-325 mg Tablet] 1 tab PO Q4HP PRN #30 tablet 01/21/20 HPI Reason(s) for Admission: Onset of Labor, Ceasarean Section-Primary Procedures: Ultrasound Intrapartum Procedure(s): : Low Cervical, Transverse Results Laboratory Results: WBC 9.3 10^3/uL (4.0-10.5) 01/20/20 06:45 RBC 3.52 10^6/uL (3.72-5.28) L 01/20/20 06:45 Hgb 9.2 g/dL (12.0-15.5) L 01/20/20 06:45 Hct 27.3 % (36.0-47.0) L 01/20/20 06:45 MCV 78 fl (80-97) L 01/20/20 06:45 MCH 26.0 pg (27.0-33.4) L 01/20/20 06:45 MCHC 33.6 g/dL (32.0-36.0) 01/20/20 06:45 RDW 16.1 % (11.5-14.0) H 01/20/20 06:45 Plt Count 111 10^3/uL (150-450) L 01/20/20 06:45 Lymph % (Auto) 14.5 % (13-45) 01/19/20 01:21 [place] % (Auto) 8.4 % (3-13) 01/19/20 01: Eos % (Auto) 0.0 % (0-6) 01/19/20 01: Baso % (Auto) 0.4 % (0-2) 01/19/20 01:21 Absolute Neuts (auto) 5.7 10^3/uL (1.7-8.2) 01/19/20 01: Absolute Lymphs (auto) 1.1 10^3/uL (0.5-4.7) 01/19/20 01:21 Absolute Monos (auto) 0.6 10^3/uL (0.1-1.4) 01/19/20 01: Absolute Eos (auto) 0.0 10^3/uL (0.0-0.6) 01/19/20 01:21 Absolute Basos (auto) 0.0 10^3/uL (0.0-0.2) 01/19/20 01: Seg Neutrophils % 76.7 % (42-78) 01/19/20 01:21 Urine Color YELLOW 01/18/20 21:30 Urine Appearance SLIGHTLY-CLOUDY 01/18/20 21:30 Urine pH 7.0 (5.0-9.0) 01/18/20 21:30 Ur Specific [place] 1.009 01/18/20 21:30 Urine Protein 30 mg/dL (NEGATIVE) H 01/18/20 21:30 Urine Glucose (UA) NEGATIVE mg/dL (NEGATIVE) 01/18/20 21:30 Urine Ketones 20 mg/dL (NEGATIVE) H 01/18/20 21:30 Urine Blood MODERATE (NEGATIVE) H 01/18/20 21:30 Urine Nitrite NEGATIVE (NEGATIVE) 05/20/20 21:30 Urine Bilirubin NEGATIVE (NEGATIVE) 01/18/20 21:30 Urine Urobilinogen NEGATIVE mg/dL (<2.0) 01/18/20 21:30 Ur Leukocyte Esterase LARGE (NEGATIVE) H 01/18/20 21:30 Urine Ascorbic Acid NEGATIVE (NEGATIVE) 01/18/20 21:30 Urine Opiates Screen NEGATIVE 01/18/20 21:30 Urine Methadone Screen NEGATIVE 01/18/20 21:30 Ur Barbiturates Screen NEGATIVE 01/18/20 21:30 Ur Phencyclidine Scrn NEGATIVE 01/18/20 21:30 Ur Amphetamines Screen NEGATIVE 01/18/20 21:30 U Benzodiazepines Scrn NEGATIVE 01/18/20 21:30 Urine Cocaine Screen NEGATIVE 01/18/20 21:30 U Marijuana (THC) Screen NEGATIVE 01/18/20 21:30 RPR NONREACTIVE (NONREACTIVE) 01/19/20 01:21 SARS-CoV-2 (PCR) NEGATIVE (NEGATIVE) 01/18/20 21:47 Blood Type A POSITIVE 01/19/20 01:21 Antibody Screen NEGATIVE 01/19/20 01:21 Plan Plan of Treatment: d/c home, f/up with [facility] in one week for incision check Time Spent: Less than 30 Minutes
[2020-01-21 14:02] VITALS: BP 133/73
== END 2020-01-21 18:30 | disposition home or self-care (01) | DRG 787 ==
LOC: LC 20:21 → LR 01-19 01:09 → 2S 01-19 20:51
PROVIDERS: ADMIT Student in an Organized Health Care Education/Training Program; ATTEND Student in an Organized Health Care Education/Training Program
PROC: 10D00Z1 Extraction of Products of Conception, Low, Open Approach (ICD-10-PCS; principal; 2020-01-19)
DX: O48.0 Post-term pregnancy (principal); D62 Acute posthemorrhagic anemia; O62.0 Primary inadequate contractions; O99.03 Anemia complicating the puerperium; O69.81X0 Labor and delivery complicated by cord around neck, without compression, not applicable or unspecified; Z3A.41 41 weeks gestation of pregnancy; Z37.0 Single live birth
CPT/HCPCS: 1967; 1968; 36415; 80307; 81005; 85025; 85027; 86592; 86850; 86900; 86901; 87086; 87635; 94799; 99140; C1758; J0131; J0690; J1170; J1200; J1885; J2250; J2370; J2405; J2590; J2795; J3010; J3490